=== PATIENT | male | born 1955 | race Caucasian/White ===

== ENCOUNTER 2020-12-17 10:55 | Outpatient (REF) | payer OTHER, SELFPAY ==
[2020-12-17 11:32] LABS: MANUAL DIFF FLAG NO
[2020-12-17 11:52] LABS: Basophils Absolute Auto 0.1 X10*3/uL (0.0-0.2); Eosinophils Absolute Auto 0.3 X10*3/uL (0.0-0.4); Hematocrit 40.2 % (42-52); Imm Gran Abs Auto 0.02 X10*3/uL (0.00-0.03); Imm Gran Pct Auto 0.4 % (0.0-0.4); Lymphocytes Absolute Auto 1.2 X10*3/uL (1.2-4.9); Lymphocytes Percent Auto 24.7 % (20-40); Mean Corpuscular HGB Conc 34.8 g/dl (31.0-36.0); Mean Corpuscular Hemoglobin 32.9 pg (27.0-33.0); Mean Corpuscular Volume 94.6 fL (80-98); Mean Platelet Volume 8.7 fL (9.4-12.4); Monocytes Absolute Auto 0.4 X10*3/uL (0.1-1.2); Monocytes Percent Auto 7.6 % (2-11); Neutrophils Absolute Auto 3.1 X10*3/uL (2.0-8.3); Neutrophils Percent Auto 61.3 % (45-73); Platelet Count 150 X10*3/uL (160-400); Red Blood Count 4.25 X10*6/uL (4.60-5.80); Red Cell Distribution Width 13.4 % (11.0-16.0)
[2020-12-17 12:18] LABS: Alanine Aminotransferase 32 U/L (0-40); Albumin Level 4.4 g/dL (3.5-5.0); Alkaline Phosphatase 46 U/L (39-117); Anion Gap 13 (12-20); Aspartate Amino Transferase 27 U/L (5-37); Bilirubin Total 1.2 mg/dL (0.0-1.0); Blood Urea Nitrogen 13 mg/dL (9-16); Calcium 9.1 mg/dL (8.4-10.2); Carbon Dioxide 27 mmol/L (22-29); Chloride 100 mmol/L (96-108); Cholesterol 147 mg/dL; Estimated Glomerular Filt Rate > 60; Glucose Fasting 102 mg/dL (60-99); HDL Cholesterol 47 mg/dL; LDL Cholesterol Calculated 74 mg/dl; Potassium 5.1 mmol/L (3.3-5.1); Sodium 135 mmol/L (135-145); Total Protein 6.9 g/dL (6.5-8.0); Triglycerides 133 mg/dL
[2020-12-17 12:25] LABS: Prostate Specific Antigen Scr 3.32 ng/mL (<0.05-4.0); T4 Thyroxine 7.8 ug/dL (4.5-12.0); Thyroid Stimulating Hormone 2.65 uIU/mL (0.32-4.0)
[2020-12-17 12:50] LABS: Folate > 20.0 ng/mL (> or = 4.0); Vitamin B12 773 pg/mL (200-900)
[2020-12-23 14:27] LABS: Testosterone, Free 127.6 pg/mL (35.0-155.0); Testosterone, Total 717 ng/dL (250-1100)
== END 2020-12-17 10:56 | disposition home or self-care (01) ==
LOC: HO.LAB 10:55
PROVIDERS: Absent Provider Urology; PCP Internal Medicine; Visit Provider Internal Medicine
DX: Z00.00 Encounter for general adult medical examination without abnormal findings (principal); Z12.5 Encounter for screening for malignant neoplasm of prostate; I10 Essential (primary) hypertension; E29.1 Testicular hypofunction; E66.01 Morbid (severe) obesity due to excess calories; H61.23 Impacted cerumen, bilateral
CPT/HCPCS: 36415; 80053; 80061; 82607; 82746; 84153; 84402; 84403; 84436; 84443; 85025

== ENCOUNTER → 2020-12-31 11:12 | Outpatient (BNVA) | payer OTHER, SELFPAY | PROVIDERS: PCP Internal Medicine; Visit Provider Urology | DX: Z13.89 Encounter for screening for other disorder (principal) | CPT/HCPCS: Q3014 ==

== ENCOUNTER 2021-06-22 10:26 | Outpatient (REF) | payer OTHER, SELFPAY ==
[2021-06-22 11:34] LABS: MANUAL DIFF FLAG SCAN; Mean Corpuscular Hemoglobin 32.5 pg (27.0-33.0); PLT CLUMP 1; SCAN SMEAR FLAG 1
[2021-06-22 11:36] LABS: Basophils Absolute Auto 0.1 X10*3/uL (0.0-0.2); Eosinophils Absolute Auto 0.3 X10*3/uL (0.0-0.4); Eosinophils Percent Auto 5.8 % (0-4); Hematocrit 36.9 % (42-52); Hemoglobin 12.8 g/dl (14.0-18.0); Imm Gran Abs Auto 0.02 X10*3/uL (0.00-0.03); Imm Gran Pct Auto 0.4 % (0.0-0.4); Immature Retic Fraction 17.1 % (2.3-13.4); Lymphocytes Percent Auto 20.3 % (20-40); Mean Corpuscular HGB Conc 34.7 g/dl (31.0-36.0); Mean Corpuscular Volume 93.7 fL (80-98); Monocytes Absolute Auto 0.4 X10*3/uL (0.1-1.2); Monocytes Percent Auto 7.2 % (2-11); Neutrophils Absolute Auto 3.3 X10*3/uL (2.0-8.3); Neutrophils Percent Auto 65.3 % (45-73); Platelet Count 146 X10*3/uL (160-400); Red Blood Count 3.94 X10*6/uL (4.60-5.80); Red Cell Distribution Width 13.3 % (11.0-16.0); Retic HGB Equivalent 35.2 pg (30.0-35.0); Reticulocyte Percent 4.6 % (0.5-1.8); Reticulocytes Absolute 0.181 X10*6/uL (0.026-0.095)
[2021-06-22 12:29] LABS: Prostate Specific Antigen 2.49 ng/mL (<0.05-4.0)
[2021-06-22 12:37] LABS: Alanine Aminotransferase 23 U/L (0-40); Albumin Level 4.2 g/dL (3.5-5.0); Alkaline Phosphatase 45 U/L (39-117); Anion Gap 17 (12-20); Aspartate Amino Transferase 26 U/L (5-37); Bilirubin Total 1.1 mg/dL (0.0-1.0); Blood Urea Nitrogen 12 mg/dL (9-16); Calcium 9.2 mg/dL (8.4-10.2); Carbon Dioxide 24 mmol/L (22-29); Chloride 97 mmol/L (96-108); Cholesterol 125 mg/dL; Estimated Glomerular Filt Rate > 60; Ferritin 152 ng/mL (20-250); Folate > 20.0 ng/mL (> or = 4.0); Free T4 (Free Thyroxine) 0.98 ng/dL (0.71-1.85); Glucose Random 96 mg/dL (60-115); HDL Cholesterol 43 mg/dL; Iron 90 mcg/dL (45-160); LDL Cholesterol Calculated 57 mg/dl; Percent Iron Saturation 32 % (15-50); Potassium 4.8 mmol/L (3.3-5.1); Prostate Specific Antigen Scr 2.58 ng/mL (<0.05-4.0); Sodium 133 mmol/L (135-145); Thyroid Stimulating Hormone 2.87 uIU/mL (0.32-4.0); Total Iron Binding Capacity 284 mcg/dL (228-428); Total Protein 6.6 g/dL (6.5-8.0); Triglycerides 126 mg/dL; Unsaturated Iron Binding 194 ug/dL; Vitamin B12 738 pg/mL (200-900)
== END 2021-06-22 10:27 | disposition home or self-care (01) ==
LOC: HO.LAB 10:26
PROVIDERS: Absent Provider Urology; PCP Internal Medicine; Visit Provider Internal Medicine
DX: Z12.5 Encounter for screening for malignant neoplasm of prostate (principal); E29.1 Testicular hypofunction; N13.8 Other obstructive and reflux uropathy; N40.1 Benign prostatic hyperplasia with lower urinary tract symptoms; D64.9 Anemia, unspecified
CPT/HCPCS: 36415; 80053; 80061; 82607; 82728; 82746; 83540; 84153; 84403; 84439; 84443; 85025; 85045

== ENCOUNTER → 2021-06-30 09:16 | Outpatient (BNVA) | payer OTHER, SELFPAY | PROVIDERS: PCP Internal Medicine; Visit Provider Urology | CPT/HCPCS: Q3014 ==

== ENCOUNTER 2022-01-05 11:02 | Outpatient (REF) | payer OTHER, SELFPAY ==
[2022-01-05 11:42] LABS: Immature Retic Fraction 18.5 % (2.3-13.4); Retic HGB Equivalent 34.3 pg (30.0-35.0); Reticulocyte Percent 3.8 % (0.5-1.8); Reticulocytes Absolute 0.173 X10*6/uL (0.026-0.095)
[2022-01-05 11:48] LABS: Hematocrit 40.7 % (42.0-52.0); Hemoglobin 14.2 g/dl (14.0-18.0); Mean Corpuscular HGB Conc 34.9 g/dl (31.0-36.0); Mean Corpuscular Hemoglobin 31.8 pg (27.0-33.0); Mean Corpuscular Volume 91.3 fL (80.0-98.0); Platelet Count 157 X10*3/uL (160-400); Red Blood Count 4.46 X10*6/uL (4.60-5.80); Red Cell Distribution Width 13.8 % (11.0-16.0); White Blood Count 5.9 X10*3/uL (4.8-10.8)
[2022-01-05 13:07] LABS: Alanine Aminotransferase 27 U/L (0-40); Albumin Level 4.2 g/dL (3.5-5.0); Alkaline Phosphatase 36 U/L (39-117); Anion Gap 13 (12-20); Aspartate Amino Transferase 31 U/L (5-37); Bilirubin Total 1.4 mg/dL (0.0-1.0); Blood Urea Nitrogen 14 mg/dL (9-16); Calcium 9.3 mg/dL (8.4-10.2); Carbon Dioxide 26 mmol/L (22-29); Chloride 100 mmol/L (96-108); Cholesterol 137 mg/dL; Estimated Glomerular Filt Rate > 60; Glucose Random 96 mg/dL (60-115); HDL Cholesterol 43 mg/dL; Iron 112 mcg/dL (45-160); LDL Cholesterol Calculated 72 mg/dl; Percent Iron Saturation 39 % (15-50); Potassium 4.8 mmol/L (3.3-5.1); Sodium 134 mmol/L (135-145); Total Iron Binding Capacity 287 mcg/dL (228-428); Total Protein 6.7 g/dL (6.5-8.0); Triglycerides 111 mg/dL; Unsaturated Iron Binding 175 ug/dL
[2022-01-05 13:10] LABS: Vitamin B12 714 pg/mL (200-900)
[2022-01-05 13:19] LABS: Ferritin 160 ng/mL (20-250); Free T4 (Free Thyroxine) 0.92 ng/dL (0.71-1.85)
[2022-01-05 13:20] LABS: Thyroid Stimulating Hormone 2.32 uIU/mL (0.32-4.0)
[2022-01-13 11:32] LABS: Testosterone, Free 78.6 pg/mL (35.0-155.0); Testosterone, Total 482 ng/dL (250-1100)
== END 2022-01-05 11:03 | disposition home or self-care (01) ==
LOC: HO.LAB 11:02
PROVIDERS: Absent Provider Urology; PCP Internal Medicine; Visit Provider Internal Medicine
DX: E29.1 Testicular hypofunction (principal); E78.00 Pure hypercholesterolemia, unspecified; N40.1 Benign prostatic hyperplasia with lower urinary tract symptoms; N13.8 Other obstructive and reflux uropathy; Z12.5 Encounter for screening for malignant neoplasm of prostate
CPT/HCPCS: 36415; 80053; 80061; 82607; 82728; 82746; 83540; 84153; 84402; 84403; 84439; 84443; 85027; 85045

== ENCOUNTER → 2022-01-31 08:35 | Outpatient (BNVA) | payer OTHER, SELFPAY | PROVIDERS: PCP Internal Medicine; Visit Provider Urology | DX: E29.1 Testicular hypofunction (principal) | CPT/HCPCS: Q3014 ==

== ENCOUNTER 2022-06-22 10:09 | Outpatient (REF) | payer OTHER, SELFPAY ==
[2022-06-22 11:11] LABS: Mean Platelet Volume 9.5 fL (9.4-12.4); PLT CLUMP 1; Red Cell Distribution Width 13.8 % (11.0-16.0); SCAN SMEAR FLAG 1
[2022-06-22 11:13] LABS: Basophils Absolute Auto 0.1 X10*3/uL (0.0-0.2); Basophils Percent Auto 1.2 % (0-2); Eosinophils Absolute Auto 0.2 X10*3/uL (0.0-0.4); Hematocrit 40.9 % (42.0-52.0); Hemoglobin 14.1 g/dl (14.0-18.0); Imm Gran Abs Auto 0.07 X10*3/uL (0.00-0.03); Imm Gran Pct Auto 1.2 % (0.0-0.4); Lymphocytes Absolute Auto 1.3 X10*3/uL (1.2-4.9); Lymphocytes Percent Auto 20.8 % (20-40); Mean Corpuscular HGB Conc 34.5 g/dl (31.0-36.0); Mean Corpuscular Hemoglobin 31.3 pg (27.0-33.0); Mean Corpuscular Volume 90.7 fL (80.0-98.0); Monocytes Absolute Auto 0.6 X10*3/uL (0.1-1.2); Monocytes Percent Auto 9.1 % (2-11); Neutrophils Absolute Auto 3.8 x10*3/uL (2.0-8.3); Neutrophils Percent Auto 63.7 % (45-73); Red Blood Count 4.51 X10*6/uL (4.60-5.80)
[2022-06-22 11:25] LABS: MANUAL DIFF FLAG NO; Platelet Count 151 X10*3/uL (160-400)
[2022-06-22 12:15] LABS: Prostate Specific Antigen 2.17 ng/mL (<0.05-4.0)
[2022-06-29 04:45] LABS: Testosterone, Total 853 ng/dL (250-1100)
== END 2022-06-22 10:10 | disposition home or self-care (01) ==
LOC: HO.LAB 10:09
PROVIDERS: Absent Provider Urology; PCP Internal Medicine; Visit Provider Internal Medicine
DX: E29.1 Testicular hypofunction (principal); E78.00 Pure hypercholesterolemia, unspecified; Z12.5 Encounter for screening for malignant neoplasm of prostate
CPT/HCPCS: 36415; 84153; 84403; 85025

== ENCOUNTER → 2022-08-02 10:51 | Outpatient (REF) | payer OTHER, SELFPAY | LOC: HO.SL 10:51 | PROVIDERS: Visit Provider Internal Medicine | DX: G47.33 Obstructive sleep apnea (adult) (pediatric) (principal) | CPT/HCPCS: 95806 ==

== ENCOUNTER → 2022-08-04 08:29 | Outpatient (BNVA) | payer OTHER, SELFPAY | PROVIDERS: PCP Internal Medicine; Visit Provider Urology | DX: E29.1 Testicular hypofunction (principal) | CPT/HCPCS: Q3014 ==

== ENCOUNTER → 2022-11-22 10:18 | Outpatient (REF) | payer OTHER, SELFPAY ==
--- NOTE | 2022-11-22 10:25 | ECG_ITS ---
Test Reason : preop Blood Pressure : / mmHG Vent. Rate : 067 BPM Atrial Rate : 067 BPM P-R Int : 192 ms QRS Dur : 170 ms QT Int : 426 ms P-R-T Axes : 101 -59 019 degrees QTc Int : 450 ms Normal sinus rhythm Right bundle branch block Left anterior fascicular block Bifascicular block Abnormal ECG When compared with ECG of 31-DEC-2017 13:54, (RBBB and left anterior fascicular block) is now Present Referred By: Venice Membreno Electronically Signed By:FERNANDA CÁRDENAS MD
[2022-11-22 10:31] LABS: MANUAL DIFF FLAG NO
[2022-11-22 12:13] LABS: Basophils Percent Auto 0.6 % (0-2); Eosinophils Absolute Auto 0.3 X10*3/uL (0.0-0.4); Eosinophils Percent Auto 5.2 % (0-4); Hematocrit 41.8 % (42.0-52.0); Hemoglobin 14.5 g/dl (14.0-18.0); Imm Gran Abs Auto 0.06 X10*3/uL (0.00-0.03); Imm Gran Pct Auto 1.2 % (0.0-0.4); Lymphocytes Absolute Auto 1.4 X10*3/uL (1.2-4.9); Lymphocytes Percent Auto 27.9 % (20-40); Mean Corpuscular HGB Conc 34.7 g/dl (31.0-36.0); Mean Corpuscular Hemoglobin 32.4 pg (27.0-33.0); Mean Corpuscular Volume 93.5 fL (80.0-98.0); Mean Platelet Volume 9.6 fL (9.4-12.4); Monocytes Absolute Auto 0.6 X10*3/uL (0.1-1.2); Neutrophils Absolute Auto 2.7 x10*3/uL (2.0-8.3); Neutrophils Percent Auto 54.1 % (45-73); Platelet Count 161 X10*3/uL (160-400); Red Blood Count 4.47 X10*6/uL (4.60-5.80); Red Cell Distribution Width 13.6 % (11.0-16.0)
[2022-11-22 12:30] LABS: Prothrombin Time 11.7 SEC (10.0-13.1)
[2022-11-22 12:56] LABS: Anion Gap 14 (12-20); Blood Urea Nitrogen 11 mg/dL (9-16); Calcium 9.2 mg/dL (8.4-10.2); Carbon Dioxide 26 mmol/L (22-29); Chloride 99 mmol/L (96-108); Estimated Glomerular Filt Rate > 60; Glucose Random 82 mg/dL (60-115); Sodium 134 mmol/L (135-145)
== END ==
LOC: HO.CARD 10:18
PROVIDERS: PCP Internal Medicine; Visit Provider Nurse Practitioner Family
DX: Z01.818 Encounter for other preprocedural examination (principal)
CPT/HCPCS: 36415; 80048; 85025; 85610; 93005

== ENCOUNTER 2023-01-18 10:34 | Outpatient (REF) | payer OTHER, SELFPAY ==
[2023-01-18 10:53] LABS: MANUAL DIFF FLAG NO
[2023-01-18 11:11] LABS: Basophils Absolute Auto 0.1 X10*3/uL (0.0-0.2); Basophils Percent Auto 1.1 % (0-2); Eosinophils Absolute Auto 0.2 X10*3/uL (0.0-0.4); Eosinophils Percent Auto 3.6 % (0-4); Hematocrit 42.2 % (42.0-52.0); Imm Gran Abs Auto 0.02 X10*3/uL (0.00-0.03); Imm Gran Pct Auto 0.4 % (0.0-0.4); Lymphocytes Absolute Auto 1.1 X10*3/uL (1.2-4.9); Lymphocytes Percent Auto 20.9 % (20-40); Mean Corpuscular HGB Conc 35.5 g/dl (31.0-36.0); Mean Corpuscular Hemoglobin 32.7 pg (27.0-33.0); Mean Corpuscular Volume 91.9 fL (80.0-98.0); Mean Platelet Volume 8.9 fL (9.4-12.4); Monocytes Absolute Auto 0.4 X10*3/uL (0.1-1.2); Monocytes Percent Auto 7.5 % (2-11); Neutrophils Absolute Auto 3.5 x10*3/uL (2.0-8.3); Neutrophils Percent Auto 66.5 % (45-73); Platelet Count 153 X10*3/uL (160-400); Red Blood Count 4.59 X10*6/uL (4.60-5.80); White Blood Count 5.3 X10*3/uL (4.8-10.8)
[2023-01-18 12:13] LABS: Alanine Aminotransferase 37 U/L (0-40); Albumin Level 4.2 g/dL (3.5-5.0); Alkaline Phosphatase 46 U/L (39-117); Anion Gap 15 (12-20); Aspartate Amino Transferase 34 U/L (5-37); Bilirubin Total 1.6 mg/dL (0.0-1.0); Blood Urea Nitrogen 12 mg/dL (9-16); Calcium 9.2 mg/dL (8.4-10.2); Carbon Dioxide 25 mmol/L (22-29); Chloride 102 mmol/L (96-108); Cholesterol 139 mg/dL; Estimated Glomerular Filt Rate > 60; Glucose Random 105 mg/dL (60-115); HDL Cholesterol 44 mg/dL; LDL Cholesterol Calculated 73 mg/dl; Potassium 4.8 mmol/L (3.3-5.1); Sodium 137 mmol/L (135-145); Total Protein 6.6 g/dL (6.5-8.0); Triglycerides 111 mg/dL
[2023-01-18 13:02] LABS: Folate 15.2 ng/mL (> or = 4.0); Free T4 (Free Thyroxine) 0.91 ng/dL (0.71-1.85); Prostate Specific Antigen Scr 2.88 ng/mL (<0.05-4.0); Vitamin B12 670 pg/mL (200-900)
[2023-01-24 15:08] LABS: Testosterone, Total 449 ng/dL (250-1100)
== END 2023-01-18 10:35 | disposition home or self-care (01) ==
LOC: HO.LAB 10:34
PROVIDERS: Absent Provider Urology; PCP Internal Medicine; Visit Provider Internal Medicine
DX: Z12.5 Encounter for screening for malignant neoplasm of prostate (principal); E78.00 Pure hypercholesterolemia, unspecified
CPT/HCPCS: 36415; 80053; 80061; 82607; 82746; 84153; 84403; 84439; 84443; 85025

== ENCOUNTER → 2023-04-04 10:47 | Outpatient (BNVA) | payer OTHER, SELFPAY | PROVIDERS: PCP Internal Medicine; Visit Provider Urology | DX: E29.1 Testicular hypofunction (principal) | CPT/HCPCS: Q3014 ==

== ENCOUNTER 2023-09-10 10:16 | Outpatient (REF) | payer OTHER, SELFPAY ==
[2023-09-10 10:49] LABS: MANUAL DIFF FLAG NO
[2023-09-10 10:59] LABS: Basophils Absolute Auto 0.1 X10*3/uL (0.0-0.2); Basophils Percent Auto 1.2 % (0-2); Eosinophils Absolute Auto 0.2 X10*3/uL (0.0-0.4); Eosinophils Percent Auto 3.7 % (0-4); Hematocrit 42.2 % (42.0-52.0); Hemoglobin 14.9 g/dl (14.0-18.0); Imm Gran Abs Auto 0.04 X10*3/uL (0.00-0.03); Imm Gran Pct Auto 0.8 % (0.0-0.4); Lymphocytes Absolute Auto 1.2 X10*3/uL (1.2-4.9); Lymphocytes Percent Auto 24.1 % (20-40); Mean Corpuscular HGB Conc 35.3 g/dl (31.0-36.0); Mean Corpuscular Hemoglobin 32.5 pg (27.0-33.0); Mean Corpuscular Volume 91.9 fL (80.0-98.0); Monocytes Absolute Auto 0.3 X10*3/uL (0.1-1.2); Neutrophils Absolute Auto 3.1 x10*3/uL (2.0-8.3); Neutrophils Percent Auto 64.2 % (45-73); Platelet Count 153 X10*3/uL (160-400); Red Blood Count 4.59 X10*6/uL (4.60-5.80); Red Cell Distribution Width 13.5 % (11.0-16.0); White Blood Count 4.9 X10*3/uL (4.8-10.8)
[2023-09-10 11:03] LABS: Estimated Average Glucose 71 mg/dL; Hemoglobin A1c % 4.1 % (<6.0)
[2023-09-10 11:24] LABS: Alanine Aminotransferase 37 U/L (0-40); Albumin Level 4.2 g/dL (3.5-5.0); Alkaline Phosphatase 47 U/L (39-117); Anion Gap 14 (12-20); Aspartate Amino Transferase 37 U/L (5-37); Bilirubin Total 1.1 mg/dL (0.0-1.0); Blood Urea Nitrogen 10 mg/dL (9-16); Carbon Dioxide 21 mmol/L (22-29); Chloride 104 mmol/L (96-108); Estimated Glomerular Filt Rate > 60; Glucose Random 105 mg/dL (60-115); Potassium 4.3 mmol/L (3.3-5.1); Sodium 135 mmol/L (135-145); Total Protein 6.9 g/dL (6.5-8.0)
[2023-09-14 15:14] LABS: Testosterone, Total 595 ng/dL (250-1100)
== END 2023-09-10 10:17 | disposition home or self-care (01) ==
LOC: HO.LAB 10:16
PROVIDERS: Absent Provider Internal Medicine; PCP Internal Medicine; Visit Provider Urology
DX: Z12.5 Encounter for screening for malignant neoplasm of prostate (principal); R73.01 Impaired fasting glucose; E29.1 Testicular hypofunction
CPT/HCPCS: 36415; 80053; 83036; 84153; 84403; 85025

== ENCOUNTER 2023-09-25 11:30 | Outpatient (AMB) | payer OTHER, SELFPAY ==
[2023-09-25 11:31] VITALS: BP 180/110; PULSE 67; O2SAT 99; BMI 36.6
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
== END 2023-09-25 12:04 | disposition home or self-care (01) ==
PROVIDERS: PCP Internal Medicine; Visit Provider Internal Medicine
DX: Z00.00 Encounter for general adult medical examination without abnormal findings (principal); E66.01 Morbid (severe) obesity due to excess calories; Z68.43 Body mass index [BMI] 50.0-59.9, adult; I73.9 Peripheral vascular disease, unspecified; R73.01 Impaired fasting glucose; G47.33 Obstructive sleep apnea (adult) (pediatric); E29.1 Testicular hypofunction; E78.00 Pure hypercholesterolemia, unspecified; I10 Essential (primary) hypertension; M21.371 Foot drop, right foot
CPT/HCPCS: 99397

== ENCOUNTER 2023-10-05 10:10 | Outpatient (AMB) | payer OTHER, SELFPAY ==
--- NOTE | 2023-10-05 10:11 | MHC.OFFVIS ---
Intake Intake Visit Reasons: 6m/labs(set) Intake Note: Patient is Present for Telephone Follow Up For Urology Med: Testosterone Antibiotic Allergy: Penicillin, Blood Thinner: Aspirin Allergies Penicillins Allergy (Mild, Verified 10/05/23 10:12) UNKNOWN bupropion [From WELLBUTRIN] Allergy (Unknown, Verified 10/05/23 10:12) UNKNOWN lisinopril [LISINOPRIL] Allergy (Unknown, Verified 10/05/23 10:12) FAINTING HPI HPI Comments History of Present Illness Details Carroll is a very pleasant male. He is a patient of Dr. Rowe. He is seen for the following urologic conditions - hypogonadism Telemedicine evaluation 15 minute consultation Video attampted Hypogonadism follow-up Lab work stable Refill provided Great response to sleep apnea machine with significant improvement in energy Sleep quality significantly increased 6 month follow-up Hypogonadism: He presents today for further evaluation and followup of his hypogonadism - stable numbers - use 2 pumps every day Initial symptoms include erectile dysfunction Yes decreased libido Yes change in mood/depression Yes in muscle size/strength Yes increased fatigue/malaise Yes The onset of symptoms has been gradual Associate conditions include chronic pain with opioid use Yes obstructive sleep apnea No CAD No obesity No stress - financial, family, employment No heavy alcohol or illicit drug use No Laboratory results 12/23 , baseline, testosterone 250, low LH amd FSH 04/22 , testosterone 757, 05/23 T 405, PSA 2.5, 12/25 T 894 PSA 2.5, 12/26 T 717, PSA 2.32, 06/25 T pend, PSA 2.5, Hct 36.9, 01/24 T 482 P 2.7 H 41, 07/27 853 2.2 40, 01/25 T 450 2.8 42, 09/27 595 3.2 42 Current therapy includes gel/cream exogenous testosterone PFSH Medical History Right foot drop Left shoulder pain Right leg DVT Obesity Hypercholesterolemia Allergic rhinitis Knee osteoarthritis Hypogonadism BPH (benign prostatic hyperplasia) Obstructive sleep apnea Anemia Peripheral vascular disease Hypertension Surgical History Hx of tonsillectomy History of cataract surgery History of total left hip arthroplasty Family History Father Acute CVA (cerebrovascular accident) Diabetes Hypertension Stroke Mother Colon cancer Diabetes Hypertension Heart attack Brother No problems noted. Sister Depression Other Cancer Social History Housing: Apartment Alcohol intake: current Alcohol intake frequency: a few times a week Alcohol type: beer Comment: QD 3 drinks Patient Tobacco Use Status: Former Tobacco user Tobacco use type: Cigarette Years Smoked: stopped 2018 e-Cigarette/Vaping Use: Never Used Second Hand Smoke Exposure: No service: No Current occupational status: disabled Cognitive needs: Yes (walker ) Hearing needs: No Vision needs: Yes (glasses) Review of Systems Const All systems reviewed & are unremarkable except as noted in HPI and below Reports no additional complaints Resp Reports no additional complaints GI Reports no additional complaints Reports as per HPI Musc Reports no additional complaints Physical Exam Telemedicine evaluation Appropriate responses Regular breathing rate and rhythm HEENT Head: Yes normal to inspection Ears: hearing grossly normal bilaterally Eyes General: appearance normal, both eyes and all related structures Neck Neck: Yes normal visual inspection Chest Chest palpation & inspection: normal inspection of the chest Resp Effort & Inspection: normal respiratory effort and able to speak in complete sentences Assessment & Plan Assessment & Plan (1) Hypogonadism in male: Code(s): E29.1 - Testicular hypofunction Plan Continue therapy Six month follow-up Orders: Orders Testosterone, Total 6 Months E29.1 - Testicular hypofunction Complete Blood Count no Diff 6 Months E29.1 - Testicular hypofunction Prostate Specific Antigen 6 Months E29.1 - Testicular hypofunction Medications: Refilled testosterone apply 2 pumps total daily over max area of upper arm and shoulder Alternate arms 2 pumps topical DAILY 75 grams 5RF 28 days E29.1 - Testicular hypofunction Patient Instructions: Imaging studies, laboratory and physical exam results were discussed and reviewed in detail. No major barriers to patient understanding were identified. An opportunity to ask questions regarding the treatment plan was provided. All questions were answered. The patient expressed understanding and agreement with the above treatment plan. The patient is aware they should contact our office by phone for worsening of their current condition or the appearance of new urologic symptoms. Compliance is encouraged with any medications and followup testing that is ordered. It is a privilege to participate in the urologic care of your patient. If you have any questions or concerns regarding treatment for the above conditions, or other urologic issues, please do not hesitate to contact me. The office telephone contact is [phone]. This note is constructed using voice recognition software. While every effort has been made to ensure accuracy solvent station attendant errors may have been included. Yours sincerely, Dr Rikki Gunn MD, [facility] - Urology Providers of Expert, Compassionate Care for the Genitourinary System Telehealth Telehealth Location of provider rendering services: practice address Location of patient: address on file Patient Identification confirmed using: Name, : Yes Telehealth method: video Patient verbally consented to treatment: Yes Patient verbally consented to billing insurance company: Yes Patient informed of any privacy concerns related to visit: Yes Coding Level of Care Code Tele Est Pt Level 3 (97395) Diagnoses Hypogonadism in male E29.1
== END 2023-10-05 11:28 | disposition home or self-care (01) ==
LOC: HO.HUSH 10:10
PROVIDERS: PCP Internal Medicine; Visit Provider Urology
DX: E29.1 Testicular hypofunction (principal)
CPT/HCPCS: 99213

== ENCOUNTER → 2023-10-05 10:10 | Outpatient (BNVA) | payer OTHER, SELFPAY | PROVIDERS: PCP Internal Medicine; Visit Provider Urology ==

== ENCOUNTER 2023-11-22 11:00 | Outpatient (RCR) | payer OTHER, SELFPAY ==
[2023-10-25 09:50] VITALS: BP 165/77; PULSE 66
--- NOTE | 2023-10-25 10:41 | MHC.PT.EP ---
[facility] [place] Office [place] Office [place] Office [address] Elizabeth Donaldson [address] [phone] F: [phone] F: [phone] F: [phone] F: [phone] Physical Therapy Plan of Care Date of Evaluation: 10/25/23 Date of Surgery: N/A Diagnosis: right foot drop (RL) Assessment: pt is a 68 y/o male presenting to physical therapy w/ referring diagnosis of right foot drop. Impairments include pain, decreased range of motion, decreased strength, impaired functional mobility, impaired postural awareness, and altered ambulation mechanics. pt is a fair candidate for skilled PT due to age, potential remediation of impairments, typical disease/condition progression and prognosis, comorbidities, and motivation. pt would benefit from skilled PT intervention to provide a tailored strengthening and stretching exercise program, functional training, gait training, postural re-training, neuromuscular re-education, modalities as needed for pain, equipment safety demonstration. Frequency and Duration: The patient will be seen 2x/wk for 4 wks Short Term Goals: pt will be I w/ HEP to promote self-management of condition. pt will improve R hip flexor strength by 1 MMT grade to promote improvement in stair navigation. Accountant Auditor Goals: pt will report a statistically significant improvement in self-reported outcome measure, LEFI, to promote return to PLOF. pt will improve standing tolerance to >15 min to promote ease in standing self-care activities. Treatment Plan: Modalities to reduce pain, spasms and effusion. Manual therapy to restore motion and function. Therapeutic exercise to improve strength and flexibility. Neuromuscular re-education for posture and balance. Therapeutic activities to return to functional activities of daily living. Electronically signed by: Mary Ledesma PT, DPT Please sign and return to therapist. Thank you for your referral.
--- NOTE | 2023-11-26 10:43 | MHC.PT.DC ---
[facility] [place] Office [place] Office [place] Office [address] Elizabeth Donaldson 140 [facility] [phone] F: [phone] F: [phone] F: [phone] F: [phone] Physical Therapy Discharge Report Diagnosis: right foot drop (RL) Date of Surgery: N/A Date of Evaluation: 10/25/23 Date of Discharge: 11/26/23 Treatments to Date: 7 Cancellations to Date: 1 No Shows to Date: 0 Discharge Status: Improved Function Independent with HEP Discharge Summary: The patient overall has been more active and shows improved strength and stamina. He is planning on getting a gym membership to continue his strengthening. He is discharged to his home program at this time. Electronically signed by: Mary Ledesma PT, DPT Please sign and return to therapist. Thank you for your referral.
== END 2023-11-26 10:43 | disposition home or self-care (01) ==
LOC: HO.PT 11:00
PROVIDERS: PCP Internal Medicine; Visit Provider Internal Medicine
DX: M21.371 Foot drop, right foot (principal)
CPT/HCPCS: 97110; 97162; 97530

== ENCOUNTER 2024-03-05 11:11 | Outpatient (REF) | payer OTHER, SELFPAY ==
[2024-03-05 13:02] LABS: Prostate Specific Antigen 3.17 ng/mL (<0.05-4.0)
[2024-03-08 15:39] LABS: Testosterone, Total 442 ng/dL (250-1100)
== END 2024-03-05 11:12 | disposition home or self-care (01) ==
LOC: HO.LAB 11:11
PROVIDERS: Absent Provider Urology; PCP Internal Medicine; Visit Provider Internal Medicine
DX: Z12.5 Encounter for screening for malignant neoplasm of prostate (principal); E29.1 Testicular hypofunction
CPT/HCPCS: 36415; 84153; 84403; 85027

== ENCOUNTER 2024-03-25 11:27 | Outpatient (AMB) | payer OTHER, SELFPAY ==
[2024-03-25 11:30] VITALS: BP 136/78; PULSE 84; O2SAT 97; BMI 51.2
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
== END 2024-03-25 12:00 | disposition home or self-care (01) ==
PROVIDERS: PCP Internal Medicine; Visit Provider Internal Medicine
DX: I10 Essential (primary) hypertension (principal); E66.01 Morbid (severe) obesity due to excess calories; Z68.43 Body mass index [BMI] 50.0-59.9, adult; H61.23 Impacted cerumen, bilateral; E29.1 Testicular hypofunction; E78.00 Pure hypercholesterolemia, unspecified; G47.33 Obstructive sleep apnea (adult) (pediatric); R73.01 Impaired fasting glucose; M21.371 Foot drop, right foot; R42 Dizziness and giddiness; M17.10 Unilateral primary osteoarthritis, unspecified knee
CPT/HCPCS: 69210; 99214

== ENCOUNTER 2024-04-09 11:00 | Outpatient (AMB) | payer OTHER, SELFPAY ==
--- NOTE | 2024-04-09 11:00 | A.OFFVIS_ITS ---
Intake Visit Reasons: 6M PSA(set) Intake Note: Patient is Presents today for a follow-up, PSA Results: Urology Med: Testosterone Antibiotic Allergy: Penicillin, Blood Thinner: Aspirin Oil Mixer Required: No Accompanied by: Self / Same As Patient Allergies Penicillins Allergy (Mild, Verified 04/09/24 11:00) UNKNOWN bupropion [From WELLBUTRIN] Allergy (Unknown, Verified 04/09/24 11:00) UNKNOWN lisinopril [LISINOPRIL] Allergy (Unknown, Verified 04/09/24 11:00) FAINTING HPI Comments Details: Carroll is a very pleasant male. He is a patient of Dr. Rowe. He is seen for the following urologic conditions - hypogonadism Telemedicine Evaluation 15 min Consultation [facility] Video Hypogonadism follow-up Lab work stable Refill provided Great response to sleep apnea machine with significant improvement in energy Sleep quality significantly increased 6 month follow-up Hypogonadism: He presents today for further evaluation and followup of his hypogonadism - stable numbers - use 2 pumps every day Initial symptoms include erectile dysfunction Yes decreased libido Yes change in mood/depression Yes in muscle size/strength Yes increased fatigue/malaise Yes The onset of symptoms has been gradual Associate conditions include chronic pain with opioid use Yes obstructive sleep apnea No CAD No obesity No stress - financial, family, employment No heavy alcohol or illicit drug use No Laboratory results 12/23 , baseline, testosterone 250, low LH amd FSH 04/22 , testosterone 757, 05/23 T 405, PSA 2.5, 12/25 T 894 PSA 2.5, 12/26 T 717, PSA 2.32, 06/25 T pend, PSA 2.5, Hct 36.9, 01/24 T 482 P 2.7 H 41, 07/27 853 2.2 40, 01/25 T 450 2.8 42, 09/27 595 3.2 42, 03/28 T 442 3.2 41 Current therapy includes gel/cream exogenous testosterone [facility] Medical History Right foot drop Left shoulder pain Right leg DVT Obesity Hypercholesterolemia Allergic rhinitis Knee osteoarthritis Hypogonadism BPH (benign prostatic hyperplasia) Obstructive sleep apnea Anemia Peripheral vascular disease Hypertension Surgical History Hx of tonsillectomy History of cataract surgery History of total left hip arthroplasty Family History Father Acute CVA (cerebrovascular accident) Diabetes Hypertension Stroke Mother Colon cancer Diabetes Hypertension Heart attack Brother No problems noted. Sister Depression Other Cancer Social History Housing: Apartment Alcohol intake: current Alcohol intake frequency: a few times a week Alcohol type: beer Comment: QD 3 drinks Patient Tobacco Use Status: Former Tobacco user Tobacco use type: Cigarette Years Smoked: stopped 2018 e-Cigarette/Vaping Use: Never Used Second Hand Smoke Exposure: No service: No Current occupational status: disabled Cognitive needs: Yes (walker ) Hearing needs: No Vision needs: Yes (glasses) Review of Systems Const All systems reviewed & are unremarkable except as noted in HPI and below Reports no additional complaints Resp Reports no additional complaints GI Reports no additional complaints Reports as per HPI Musc Reports no additional complaints Physical Exam Telemedicine evaluation Appropriate responses Regular breathing rate and rhythm HEENT Head: Yes normal to inspection Ears: hearing grossly normal bilaterally Eyes General: appearance normal, both eyes and all related structures Neck Neck: Yes normal visual inspection Chest Chest palpation & inspection: normal inspection of the chest Resp Effort & Inspection: normal respiratory effort and able to speak in complete sentences Telehealth Telehealth Telehealth Platform: [facility] Location of provider rendering services: practice address Location of patient: address on file Patient Identification confirmed using: Name, : Yes Telehealth method: video Patient verbally consented to treatment: Yes Patient verbally consented to billing insurance company: Yes Patient informed of any privacy concerns related to visit: Yes Minutes spent on Phone/Video with Pt.: 15 Assessment & Plan Assessment & Plan (1) Hypogonadism in male: Code(s): E29.1 - Testicular hypofunction Category: Medical Plan Six-month follow-up labs office Orders: Orders Prostate Specific Antigen 6 Months E29.1 - Testicular hypofunction Testosterone, Total 6 Months E29.1 - Testicular hypofunction Complete Blood Count no Diff 6 Months E29.1 - Testicular hypofunction Medications: Refilled testosterone apply 2 pumps total daily over max area of upper arm and shoulder Alternate arms 2 pumps topical DAILY 28 days 75 grams 5RF E29.1 - Testicular hypofunction Patient Instructions: Imaging studies, laboratory and physical exam results were discussed and reviewed in detail. No major barriers to patient understanding were identified. An opportunity to ask questions regarding the treatment plan was provided. All questions were answered. The patient expressed understanding and agreement with the above treatment plan. The patient is aware they should contact our office by phone for worsening of their current condition or the appearance of new urologic symptoms. Compliance is encouraged with any medications and followup testing that is ordered. It is a privilege to participate in the urologic care of your patient. If you have any questions or concerns regarding treatment for the above conditions, or other urologic issues, please do not hesitate to contact me. The office telephone contact is [phone]. This note is constructed using voice recognition software. While every effort has been made to ensure accuracy cooler conveyor loader errors may have been included. Yours sincerely, Dr Rikki Gunn MD, [facility] - Urology Providers of Expert, Compassionate Care for the Genitourinary System Coding Level of Care Code Tele Est Pt Level 3 (48230) Diagnoses Hypogonadism in male E29.1
== END 2024-04-09 11:23 | disposition home or self-care (01) ==
LOC: HO.HUSH 11:00
PROVIDERS: PCP Internal Medicine; Visit Provider Urology
DX: E29.1 Testicular hypofunction (principal)
CPT/HCPCS: 99213

== ENCOUNTER → 2024-04-09 11:00 | Outpatient (BNVA) | payer OTHER, SELFPAY | PROVIDERS: PCP Internal Medicine; Visit Provider Urology ==

== ENCOUNTER 2024-05-21 11:00 | Outpatient (RCR) | payer OTHER, SELFPAY ==
[2024-04-30 10:05] VITALS: BP 135/67; PULSE 62
--- NOTE | 2024-04-30 11:16 | MHC.PT.EP ---
[facility] [place] Office [place] Office [place] Office [address] Elizabeth Donaldson [address] [phone] F: [phone] F: [phone] F: [phone] F: [phone] Physical Therapy Plan of Care Date of Evaluation: 04/30/24 Date of Surgery: Diagnosis: Dizziness and giddiness Vertigo Assessment: Pt is a pleasant 68yo M who presents to PT with dizziness with nystagmus noted throughout previous PT sessions. Pt reports dizziness when laying on his left side. Upon assessment, pt had (+) left [place]ina Hallpike. Pt was taken through L Mike maneuver x 1 rep. Pt had (-) L [place] Hallpike upon reassesment after Mike Maneuver. He also had (-) roll test bilaterally after treatment. Pt is recommended to be seen for PT to reassess symptoms and treat BPPV as appropriate Frequency and Duration: The patient will be seen 6 visits Short Term Goals: Pt will be I with HEP to promote self management of symptoms Pt will test negative for BPPV Correction Goals: Pt will perform rolling toward left side without dizziness or instability Pt will perform supine<>sit transfers without dizziness or instability Treatment Plan: Modalities to reduce pain, spasms and effusion. Manual therapy to restore motion and function. Therapeutic exercise to improve strength and flexibility. Neuromuscular re-education for posture and balance. Therapeutic activities to return to functional activities of daily living. Electronically signed by: Ailyn Avila, PT, DPT Please sign and return to therapist. Thank you for your referral.
--- NOTE | 2024-08-11 12:29 | MHC.PT.DC ---
[facility] [place] Office [place] Office [place] Office [address]on [address] [phone] F: [phone] F: [phone] F: [phone] F: [phone] Physical Therapy Discharge Report Diagnosis: Dizziness and giddiness Vertigo Date of Surgery: Date of Evaluation: 04/30/24 Date of Discharge: 08/11/24 Treatments to Date: 1 Cancellations to Date: No Shows to Date: Discharge Status: Discharge Summary: Pt is being D/C from skilled PT as he has not attended or called to schedule in > 30 days. Pt current level of function unknown at this time Electronically signed by: Ailyn Avila, PT, DPT Please sign and return to therapist. Thank you for your referral.
== END 2024-08-11 12:29 | disposition home or self-care (01) ==
LOC: HO.PT 11:00
PROVIDERS: PCP Internal Medicine; Visit Provider Internal Medicine
DX: R42 Dizziness and giddiness (principal)
CPT/HCPCS: 95992; 97161

== ENCOUNTER 2024-07-31 10:54 | Outpatient (REF) | payer OTHER, SELFPAY ==
[2024-07-31 11:35] LABS: MANUAL DIFF FLAG NO
[2024-07-31 12:24] LABS: Basophils Absolute Auto 0.1 X10*3/uL (0.0-0.2); Eosinophils Absolute Auto 0.3 X10*3/uL (0.0-0.4); Eosinophils Percent Auto 4.3 % (0-4); Hematocrit 40.9 % (42.0-52.0); Hemoglobin 14.6 g/dl (14.0-18.0); Imm Gran Abs Auto 0.06 X10*3/uL (0.00-0.03); Lymphocytes Absolute Auto 1.6 X10*3/uL (1.2-4.9); Lymphocytes Percent Auto 26.1 % (20-40); Mean Corpuscular HGB Conc 35.7 g/dl (31.0-36.0); Mean Corpuscular Volume 92.3 fL (80.0-98.0); Mean Platelet Volume 9.2 fL (9.4-12.4); Monocytes Absolute Auto 0.4 X10*3/uL (0.1-1.2); Monocytes Percent Auto 6.9 % (2-11); Neutrophils Absolute Auto 3.7 x10*3/uL (2.0-8.3); Neutrophils Percent Auto 60.7 % (45-73); Platelet Count 141 X10*3/uL (160-400); Red Blood Count 4.43 X10*6/uL (4.60-5.80); Red Cell Distribution Width 13.4 % (11.0-16.0); White Blood Count 6.1 X10*3/uL (4.8-10.8)
[2024-07-31 12:33] LABS: Hemoglobin A1c % 4.4 % (<6.0)
[2024-07-31 12:34] LABS: Estimated Average Glucose 80 mg/dL
[2024-07-31 12:58] LABS: Alanine Aminotransferase 64 U/L (0-40); Albumin Level 4.2 g/dL (3.5-5.0); Alkaline Phosphatase 42 U/L (39-117); Anion Gap 13 (12-20); Aspartate Amino Transferase 54 U/L (5-37); Bilirubin Total 1.2 mg/dL (0.0-1.0); Blood Urea Nitrogen 13 mg/dL (9-16); Calcium 9.6 mg/dL (8.4-10.2); Carbon Dioxide 26 mmol/L (22-29); Chloride 103 mmol/L (96-108); Cholesterol 133 mg/dL (<200); Estimated Glomerular Filt Rate > 60; Glucose Random 103 mg/dL (60-115); HDL Cholesterol 44 mg/dL (>40); LDL Cholesterol Calculated 60 mg/dL (<100); Potassium 4.9 mmol/L (3.3-5.1); Sodium 137 mmol/L (135-145); Total Protein 6.9 g/dL (6.5-8.0); Triglycerides 146 mg/dL (<150)
[2024-07-31 13:17] LABS: Free T4 (Free Thyroxine) 0.96 ng/dL (0.71-1.85); Thyroid Stimulating Hormone 2.33 uIU/mL (0.32-4.0)
[2024-07-31 13:23] LABS: Folate 15.9 ng/mL (> or = 4.0); Prostate Specific Antigen Scr 4.66 ng/mL (<0.05-4.0); Vitamin B12 1168 pg/mL (200-900)
== END 2024-07-31 10:55 | disposition home or self-care (01) ==
LOC: HO.LAB 10:54
PROVIDERS: Absent Provider Internal Medicine; PCP Internal Medicine; Visit Provider Urology
DX: E78.00 Pure hypercholesterolemia, unspecified (principal); Z12.5 Encounter for screening for malignant neoplasm of prostate; Z13.1 Encounter for screening for diabetes mellitus
CPT/HCPCS: 36415; 80053; 80061; 82607; 82746; 83036; 84153; 84439; 84443; 85025

== ENCOUNTER 2024-08-12 08:39 | Outpatient (REF) | payer OTHER, SELFPAY ==
[2024-08-12 09:45] LABS: Alanine Aminotransferase 58 U/L (0-40); Albumin Level 4.4 g/dL (3.5-5.0); Alkaline Phosphatase 42 U/L (39-117); Aspartate Amino Transferase 46 U/L (5-37); Bilirubin Direct 0.4 mg/dL (0.0-0.5); Bilirubin Total 1.2 mg/dL (0.0-1.0)
[2024-08-12 10:02] LABS: PSA,Total (Free>4and<10) 3.92 ng/mL (0.00-4.00)
[2024-08-12 10:04] LABS: HBS Num1 0.34 mIU/mL (0-7.99); HBsAGNum1 0.34 S/CO (0.00-0.99); Hepatitis B Core Antibody Nonreactive (Nonreactive); Hepatitis B Surface Antigen Negative (Negative); ~HepC Num1 0.09 S/CO (0.00-0.79); ~Hepatitis B Surface Antibody NONREACTIVE (Nonreactive); ~Hepatitis C Antibody Nonreactive (Nonreactive)
== END 2024-08-12 08:40 | disposition home or self-care (01) ==
LOC: HO.LAB 08:39
PROVIDERS: PCP Internal Medicine; Visit Provider Internal Medicine
DX: R97.20 Elevated prostate specific antigen [PSA] (principal); R79.89 Other specified abnormal findings of blood chemistry; Z12.5 Encounter for screening for malignant neoplasm of prostate
CPT/HCPCS: 36415; 80076; 84153; 86704; 86706; 86803; 87340

== ENCOUNTER 2024-08-13 11:19 | Outpatient (AMB) | payer OTHER, SELFPAY ==
--- NOTE | 2024-08-13 11:20 | MHC.PC.OV ---
Vital Signs 08/13/24 11:21 08/13/24 11:40 Height 5 ft 10 in Weight 359 lb 12.71 oz BMI 51.6 BP 160/80 H 124/70 Blood Pressure Location Lt brachial Lt brachial Position Sitting Sitting Pulse 66 Pulse Source Pulse Oximeter Pulse Oximetry (%) 98 Oxygen Delivery Method Room Air Intake Visit Reasons: IGT, HTN Intake Note: Patient is here to follow up on IGT, HTN. Balance Engineer Required: No Legal Services Professional: Not Required per policy Accompanied by: Self / Same As Patient Allergies Penicillins Allergy (Mild, Verified 08/13/24 11:21) UNKNOWN bupropion [From WELLBUTRIN] Allergy (Unknown, Verified 08/13/24 11:21) UNKNOWN lisinopril [LISINOPRIL] Allergy (Unknown, Verified 08/13/24 11:21) FAINTING Medication List - Last Reconciled 08/13/24 by Yuri Rowe MD amlodipine 5 mg PO DAILY aspirin (Adult Aspirin Regimen) 81 mg PO DAILY cholecalciferol (vitamin D3) 50 mcg PO DAILY 90 days clotrimazole 1% 1 appl topical BID 4 weeks compr.stocking,knee,long,x-lrg As directed 20-30 mm HG [CPAP AUTO PAP 6-20 cm H20 humidified air As directed] cyclosporine 0.05% (Restasis) 1 drp ophthalmic (eye) Q12H diclofenac sodium 1% (Voltaren Arthritis Pain) 4 grams topical QID fexofenadine 180 mg PO DAILY fluticasone propionate 50 mcg/actuation 2 sprays intranasal DAILY [hyperbaric rollator walker with seat As directed] ibuprofen 600 mg PO Q6H PRN 90 days melatonin 10 mg PO BEDTIME PRN metoprolol tartrate 100 mg PO BID miconazole nitrate 2% (Zeasorb AF) 1 appl topical BID olmesartan (Benicar) 20 mg PO DAILY 30 days simvastatin 20 mg PO BEDTIME testosterone 2 pumps topical DAILY 28 days Tobacco use date assessed: 08/13/24 Fall risk assessment: No Falls in past year Last assessed Fall Risk: 08/13/24 Dental Screening Dental Screen Date: 03/25/24 HPI IGT, HTN HPI Details 68-year-old morbidly obese male with hypogonadism hypertension hypercholesterolemia obstructive sleep apnea impaired glucose tolerance coming in for follow-up. Last seen in 03/24/2024. Patient does have a right footdrop. Patient's colonoscopy is due had it in November 2018 with tubular adenoma. Patient does follow-up with urology on testosterone [facility] Medical History Right foot drop Left shoulder pain Right leg DVT Obesity Hypercholesterolemia Allergic rhinitis Knee osteoarthritis Hypogonadism BPH (benign prostatic hyperplasia) Obstructive sleep apnea Anemia Peripheral vascular disease Hypertension Surgical History Hx of tonsillectomy History of cataract surgery History of total left hip arthroplasty Family History Father Acute CVA (cerebrovascular accident) Diabetes Hypertension Stroke Mother Colon cancer Diabetes Hypertension Heart attack Brother No problems noted. Sister Depression Other Cancer Social History Housing: Apartment Alcohol intake: current Alcohol intake frequency: a few times a week Alcohol type: beer Comment: QD 3 drinks Patient Tobacco Use Status: Former Tobacco user Tobacco use type: Cigarette Years Smoked: stopped 2018 e-Cigarette/Vaping Use: Never Used Second Hand Smoke Exposure: No service: No Current occupational status: disabled Cognitive needs: Yes (walker ) Hearing needs: No Vision needs: Yes (glasses) Questionnaire Thrive Questionnaire Date Thrive assessed: 03/25/24 Are you currently unemployed and looking for a job?: No AUDIT C Alcohol Use Questionnaire (AUDIT-C) 2. How many drinks containing alcohol do you have on a typical day when you are drinking?: 3 or 4 3. How often do you have six or more drinks on one occasion?: Never Total Score: 1 SABINO-7 AMB Questionnaire SABINO-7 Date SABINO - 7 assessed: 03/25/24 Source: Developed by Drs. Lei Page, Mirna Reaves, Pradeep Max and colleagues, with an educational nicole from [employer] for Parents. Physical exam (Primary Care) Vital Signs: Last Vital Signs Pulse 66 08/13/24 11:21 BP 124/70 08/13/24 11:40 Pulse Ox 98 08/13/24 11:21 Oxygen Delivery Method Room Air 08/13/24 11:21 BMI result Body Mass Index 51.6 Tobacco/Smoking Status: Tobacco use Status Tobacco use date assessed 08/13/24 08/13/24 11:26 Patient Tobacco Use Status Former Tobacco user 08/13/24 11:26 Tobacco use type Cigarette 08/13/24 11:26 e-Cigarette/Vaping Use Never Used 08/13/24 11:26 Thrive Assessment: Date of Thrive Assessment Date Thrive assessed 03/25/24 08/13/24 11:26 Const General: alert; No acute distress Eyes Conjunctivae: conjunctivae normal Resp Auscultation: clear to auscultation bilaterally Cardio Rate: regular rate Rhythm: regular rhythm GI Inspection: Yes normal to inspection Extrem General: Yes normal to inspection and No edema Coding Level of Care Code Est Pt Level 4 (56403) Diagnoses Essential hypertension I10 Hypertension type: essential hypertension Peripheral vascular disease I73.9 Anemia, unspecified type D64.9 Anemia type: unspecified type Hypercholesterolemia E78.00 Obstructive sleep apnea (adult) (pediatric) G47.33 Hypogonadism in male E29.1 Morbid obesity with BMI of 50.0-59.9, adult E66.01; Z68.43 Impaired fasting glucose R73.01 PSA elevation R97.20 LFT elevation R79.89 Tubular adenoma of colon D12.6 Assessment & Plan Assessment & Plan (1) Hypertension: Comment: Catheterization done July 2013[place] cardiovascular Code(s): I10 - Essential (primary) hypertension Category: Medical Qualifiers: Hypertension type: essential hypertension Qualified Code(s): I10 - Essential (primary) hypertension Plan: Continue with blood pressure medication. Decrease salt intake and exercise on amlodipine, metoprolol Benicar. (2) Peripheral vascular disease: Code(s): I73.9 - Peripheral vascular disease, unspecified Category: Medical Plan: When sitting down elevate the legs, exercise, and support stockings (3) Anemia: Code(s): D64.9 - Anemia, unspecified Category: Medical Qualifiers: Anemia type: unspecified type Qualified Code(s): D64.9 - Anemia, unspecified Plan: Anemia of chronic disease continuing to monitor (4) Hypercholesterolemia: Code(s): E78.00 - Pure hypercholesterolemia, unspecified Category: Medical Plan: Avoid fried foods, chicken skin, eggs, butter margarine, pastries and meat. Be it pork or beef they have a lot of cholesterol LDL goal of less than 130 and triglyceride of less than 150 on simvastatin 20 mg once a day (5) Obstructive sleep apnea (adult) (pediatric): Comment: CPAP Code(s): G47.33 - Obstructive sleep apnea (adult) (pediatric) Category: Medical Plan: Continue to use the CPAP more than 4 hours a night and benefits from this (6) Hypogonadism in male: Code(s): E29.1 - Testicular hypofunction Category: Medical Plan: Continue to follow-up with urology on testosterone (7) Morbid obesity with BMI of 50.0-59.9, adult: Code(s): E66.01 - Morbid (severe) obesity due to excess calories; Z68.43 - Body mass index [BMI] 50.0-59.9, adult Category: Medical Plan: Diet and exercise (8) Impaired fasting glucose: Code(s): R73.01 - Impaired fasting glucose Category: Medical Plan: Decrease the amount of carbohydrate intake, pasta, bread, rice and potatoes are all sugar and that is aside from all the sweet stuff, remember that fruits are good but they are Sweet also. (9) PSA elevation: Code(s): R97.20 - Elevated prostate specific antigen [PSA] Category: Medical Plan: Patient is being followed up by Urology (10) LFT elevation: Code(s): R79.89 - Other specified abnormal findings of blood chemistry Category: Medical Plan: Retesting and ultrasound requested (11) Tubular adenoma of colon: Comment: 2019 Code(s): D12.6 - Benign neoplasm of colon, unspecified Category: Medical Plan: Patient has a planned procedure for colonoscopy Orders: Referrals Podiatry Referral M21.371 - Foot drop, right foot Gastroenterology Referral D12.6 - Benign neoplasm of colon, unspecified
[2024-08-13 11:21] VITALS: BP 160/80; PULSE 66; O2SAT 98; BMI 51.6
[2024-08-13 11:40] VITALS: BP 124/70
== END 2024-08-13 11:51 | disposition home or self-care (01) ==
PROVIDERS: PCP Internal Medicine; Visit Provider Internal Medicine
DX: I10 Essential (primary) hypertension (principal); I73.9 Peripheral vascular disease, unspecified; E66.813 Obesity, class 3; Z68.43 Body mass index [BMI] 50.0-59.9, adult; D64.9 Anemia, unspecified; E78.00 Pure hypercholesterolemia, unspecified; G47.33 Obstructive sleep apnea (adult) (pediatric); E29.1 Testicular hypofunction; R73.01 Impaired fasting glucose; R97.20 Elevated prostate specific antigen [PSA]; D12.6 Benign neoplasm of colon, unspecified

== ENCOUNTER → 2024-08-13 11:19 | Outpatient (BNVA) | payer OTHER, SELFPAY | PROVIDERS: PCP Internal Medicine; Visit Provider Internal Medicine | DX: I10 Essential (primary) hypertension (principal); I73.9 Peripheral vascular disease, unspecified; D64.9 Anemia, unspecified; E78.00 Pure hypercholesterolemia, unspecified; G47.33 Obstructive sleep apnea (adult) (pediatric); E66.01 Morbid (severe) obesity due to excess calories; Z68.43 Body mass index [BMI] 50.0-59.9, adult; R73.01 Impaired fasting glucose; R97.20 Elevated prostate specific antigen [PSA]; R79.89 Other specified abnormal findings of blood chemistry; D12.6 Benign neoplasm of colon, unspecified | CPT/HCPCS: 99212 ==

== ENCOUNTER 2024-08-21 10:10 | Outpatient (REF) | payer OTHER, SELFPAY ==
--- NOTE | ~2024-08-21 | US_ITS ---
EXAMINATION: US ABDOMEN COMPLETE CLINICAL INFORMATION: Other specified abnormal findings of blood chemistry. COMPARISON: None available. TECHNIQUE: Real-time imaging of the abdominal viscera. FINDINGS: PANCREAS: The visualized portion of the pancreas head and body are normal, portion of the pancreatic body and tail, not visualized are obscured by bowel gas. ABDOMINAL AORTA: The proximal, mid, and distal segments are normal in caliber. INFERIOR VENA CAVA: Visualized portions are normal. LIVER: The liver is normal in size. The liver contour is normal. Increased echogenicity of the liver parenchyma, this can be seen in the setting of hepatic steatosis or liver parenchymal disease. No focal hepatic lesion. There is no intrahepatic biliary duct dilatation seen. GALLBLADDER: There are gallstones The gallbladder is physiologically distended without evidence of sludge, polyps, wall thickening or pericholecystic fluid. COMMON BILE DUCT: Normal in caliber measuring 0.5 cm in diameter. RIGHT KIDNEY: There are renal cysts upper pole 1.5 cm, middle pole not well visualized No hydronephrosis or renal calculi. The kidney measures 12.3 cm in maximum dimension. LEFT KIDNEY: Normal. No hydronephrosis. No renal calculi or focal parenchymal lesions. The kidney measures 12.4 cm in maximum dimension. SPLEEN: Enlarged The spleen measures 14.0 cm in maximum dimension. FREE FLUID: None. US/US abdomen complete IMPRESSION: 1. Increased echogenicity of the liver parenchyma, this can be seen in the setting of hepatic steatosis or liver parenchymal disease. 2. Splenomegaly. 3. Cholelithiasis without ultrasound evidence of acute cholecystitis. 4. Right renal cysts. Electronically signed by: Rosie Méndez MD 09/21/2024 06:54 PM EST
== END 2024-08-21 10:11 | disposition home or self-care (01) ==
LOC: HO.US 10:10
PROVIDERS: PCP Internal Medicine; Visit Provider Internal Medicine
DX: R79.89 Other specified abnormal findings of blood chemistry (principal)
CPT/HCPCS: 76700

== ENCOUNTER 2024-10-01 10:42 | Outpatient (REF) | payer OTHER, SELFPAY ==
[2024-10-01 11:46] LABS: Hematocrit 41.8 % (42.0-52.0); Hemoglobin 14.9 g/dl (14.0-18.0); Mean Corpuscular HGB Conc 35.6 g/dl (31.0-36.0); Mean Corpuscular Hemoglobin 32.9 pg (27.0-33.0); Mean Corpuscular Volume 92.3 fL (80.0-98.0); Mean Platelet Volume 9.3 fL (9.4-12.4); Platelet Count 139 X10*3/uL (160-400); Red Blood Count 4.53 X10*6/uL (4.60-5.80); Red Cell Distribution Width 13.3 % (11.0-16.0); White Blood Count 5.3 X10*3/uL (4.8-10.8)
[2024-10-01 12:33] LABS: Prostate Specific Antigen 3.64 ng/mL (<0.05-4.0)
[2024-10-06 01:28] LABS: Testosterone, Total 624 ng/dL (250-1100)
== END 2024-10-01 10:43 | disposition home or self-care (01) ==
LOC: HO.LAB 10:42
PROVIDERS: PCP Internal Medicine; Visit Provider Urology
DX: E29.1 Testicular hypofunction (principal); Z12.5 Encounter for screening for malignant neoplasm of prostate
CPT/HCPCS: 36415; 84153; 84403; 85027

== ENCOUNTER 2024-10-10 11:34 | Outpatient (AMB) | payer OTHER, SELFPAY ==
--- NOTE | 2024-10-10 11:34 | A.OFFVIS_ITS ---
Intake Visit Reasons: 6m/labs Intake Note: Patient is Presents today for a 6M follow-up/LABS Urology Med: Testosterone Antibiotic Allergy: Penicillin, Blood Thinner: Aspirin Cigarette Stamper Required: No Accompanied by: Self / Same As Patient Allergies Penicillins Allergy (Mild, Verified 10/10/24 11:35) UNKNOWN bupropion [From WELLBUTRIN] Allergy (Unknown, Verified 10/10/24 11:35) UNKNOWN lisinopril [LISINOPRIL] Allergy (Unknown, Verified 10/10/24 11:35) FAINTING HPI Comments Details: Carroll is a very pleasant male. He is a patient of Dr. Rowe. He is seen for the following urologic conditions - hypogonadism Hypogonadism follow-up Refill provided Great response to sleep apnea machine with significant improvement in energy 6 month follow-up Discussed weight loss Hypogonadism: He presents today for further evaluation and followup of his hypogonadism - stable numbers - use 2 pumps every day Initial symptoms include erectile dysfunction Yes decreased libido Yes change in mood/depression Yes in muscle size/strength Yes increased fatigue/malaise Yes The onset of symptoms has been gradual Associate conditions include chronic pain with opioid use Yes obstructive sleep apnea No CAD No obesity No stress - financial, family, employment No heavy alcohol or illicit drug use No Laboratory results 12/23 , baseline, testosterone 250, low LH amd FSH 04/22 , testosterone 757, 05/23 T 405, PSA 2.5, 12/25 T 894 PSA 2.5, 12/26 T 717, PSA 2.32, 06/25 T pend, PSA 2.5, Hct 36.9, 01/24 T 482 P 2.7 H 41, 07/27 853 2.2 40, 01/25 T 450 2.8 42, 09/27 595 3.2 42, 03/28 T 442 3.2 41, 09/28 624 42 3.6 Current therapy includes gel/cream exogenous testosterone [facility] Medical History Right foot drop Left shoulder pain Right leg DVT Obesity Hypercholesterolemia Allergic rhinitis Knee osteoarthritis Hypogonadism BPH (benign prostatic hyperplasia) Obstructive sleep apnea Anemia Peripheral vascular disease Hypertension Surgical History Hx of tonsillectomy History of cataract surgery History of total left hip arthroplasty Family History Father Acute CVA (cerebrovascular accident) Diabetes Hypertension Stroke Mother Colon cancer Diabetes Hypertension Heart attack Brother No problems noted. Sister Depression Other Cancer Social History Housing: Apartment Alcohol intake: current Alcohol intake frequency: a few times a week Alcohol type: beer Comment: QD 3 drinks Patient Tobacco Use Status: Former Tobacco user Tobacco use type: Cigarette Years Smoked: stopped 2018 e-Cigarette/Vaping Use: Never Used Second Hand Smoke Exposure: No service: No Current occupational status: disabled Cognitive needs: Yes (walker ) Hearing needs: No Vision needs: Yes (glasses) Review of Systems Const Denies chills and Denies fever(s) Card Reports no additional complaints and Denies syncope Resp Denies cough GI Denies abdominal pain and Denies heartburn Reports as per HPI and Denies change in libido Neuro Denies syncope Psych Denies change in libido Endo Denies change in libido Physical Exam Const General: cooperative, healthy appearing, comfortable and no acute distress Orientation/consciousness: patient oriented x3 HEENT Face and sinus: Yes normal facial exam Mouth: moist mucous membranes Neck Neck: Yes normal visual inspection, Yes full ROM and Yes trachea midline Chest Chest palpation & inspection: normal inspection of the chest Resp Effort & Inspection: normal respiratory effort, able to speak in complete sentences and no respiratory distress GI Inspection: Yes normal to inspection Back/Spine/Pelvis Cervical Spine: normal cervical lordosis Thoracic/Lumbar Spine: thoracic and lumbar spine normal to inspection Skin General skin exam: no rashes or lesions noted Neuro General: patient oriented x3, gait normal, tone normal and moves all extremities Extrem General: Yes normal to inspection and Yes capillary refill normal Assessment & Plan Assessment & Plan (1) PSA elevation: Code(s): R97.20 - Elevated prostate specific antigen [PSA] Category: Medical (2) Hypogonadism in male: Code(s): E29.1 - Testicular hypofunction Category: Medical Plan Continue with gel Orders: Orders Testosterone, Total 6 Months E29.1 - Testicular hypofunction Complete Blood Count no Diff 6 Months E29.1 - Testicular hypofunction Prostate Specific Antigen 6 Months E29.1 - Testicular hypofunction Patient Instructions: Imaging studies, laboratory and physical exam results were discussed and reviewed in detail. No major barriers to patient understanding were identified. An opportunity to ask questions regarding the treatment plan was provided. All questions were answered. The patient expressed understanding and agreement with the above treatment plan. The patient is aware they should contact our office by phone for worsening of their current condition or the appearance of new urologic symptoms. Compliance is encouraged with any medications and followup testing that is ordered. It is a privilege to participate in the urologic care of your patient. If you have any questions or concerns regarding treatment for the above conditions, or other urologic issues, please do not hesitate to contact me. The office telephone contact is [phone]. This note is constructed using voice recognition software. While every effort has been made to ensure accuracy dog groomer errors may have been included. Yours sincerely, Dr Rikki Gunn MD, [facility] - Urology Providers of Expert, Compassionate Care for the Genitourinary System Coding Level of Care Code Est Pt Level 3 (31044) Diagnoses PSA elevation R97.20 Hypogonadism in male E29.1
== END 2024-10-10 12:12 | disposition home or self-care (01) ==
LOC: HO.HUSH 11:34
PROVIDERS: PCP Internal Medicine; Visit Provider Urology
DX: R97.20 Elevated prostate specific antigen [PSA] (principal); E29.1 Testicular hypofunction
CPT/HCPCS: 99213

== ENCOUNTER → 2024-10-10 11:34 | Outpatient (BNVA) | payer OTHER, SELFPAY | PROVIDERS: PCP Internal Medicine; Visit Provider Urology | DX: R97.20 Elevated prostate specific antigen [PSA] (principal); E29.1 Testicular hypofunction | CPT/HCPCS: 99212 ==

== ENCOUNTER 2025-01-22 11:22 | Outpatient (AMB) | payer OTHER, SELFPAY ==
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
[2025-01-22 11:34] VITALS: BP 142/80; PULSE 65; O2SAT 97; BMI 52.2
[2025-01-22 11:58] VITALS: BP 126/70
== END 2025-01-22 12:18 | disposition home or self-care (01) ==
LOC: HO.HMCH 11:22
PROVIDERS: PCP Internal Medicine; Visit Provider Internal Medicine
DX: Z00.00 Encounter for general adult medical examination without abnormal findings (principal); I73.9 Peripheral vascular disease, unspecified; E66.01 Morbid (severe) obesity due to excess calories; Z68.43 Body mass index [BMI] 50.0-59.9, adult; I10 Essential (primary) hypertension; E78.00 Pure hypercholesterolemia, unspecified; E29.1 Testicular hypofunction; G47.33 Obstructive sleep apnea (adult) (pediatric); K76.0 Fatty (change of) liver, not elsewhere classified; K80.20 Calculus of gallbladder without cholecystitis without obstruction; D12.6 Benign neoplasm of colon, unspecified; M21.371 Foot drop, right foot

== ENCOUNTER → 2025-01-22 11:22 | Outpatient (BNVA) | payer OTHER, SELFPAY | PROVIDERS: PCP Internal Medicine; Visit Provider Internal Medicine | DX: Z00.00 Encounter for general adult medical examination without abnormal findings (principal); I10 Essential (primary) hypertension; I73.9 Peripheral vascular disease, unspecified; E29.1 Testicular hypofunction; G47.33 Obstructive sleep apnea (adult) (pediatric); K76.0 Fatty (change of) liver, not elsewhere classified; K80.20 Calculus of gallbladder without cholecystitis without obstruction; D12.6 Benign neoplasm of colon, unspecified; M21.371 Foot drop, right foot; R73.01 Impaired fasting glucose | CPT/HCPCS: 96127; 99397 ==

== ENCOUNTER 2025-03-24 11:23 | Outpatient (AMB) | payer OTHER, SELFPAY ==
--- NOTE | 2025-03-24 11:26 | A.OFFVIS_ITS ---
Vital Signs 03/24/25 11:34 Height 5 ft 10 in Weight 360 lb BMI 51.6 BP 138/68 Blood Pressure Location Rt brachial Position Sitting Pulse 82 Pulse Source Pulse Oximeter Pulse Oximetry (%) 95 Oxygen Delivery Method Room Air Intake Visit Reasons: Colonoscopy Screening Intake Note: NEW PATIENT for RECALL colo. Last was with Dr. Snell in 2019. CC; Pt denies any GI sx at this time. Pt does report recently starting GLP 1 therapy x5-6 weeks ago which has been going well with the exception of PM hypotensive episodes which he is attempting to manage with his PCP. Pt is on HTN therapy. Pharmacy; [facility] Physical Therapy Manager Required: No Accompanied by: Self / Same As Patient Allergies Penicillins Allergy (Mild, Verified 03/24/25 11:26) UNKNOWN bupropion [From WELLBUTRIN] Allergy (Unknown, Verified 03/24/25 11:26) UNKNOWN lisinopril [LISINOPRIL] Allergy (Unknown, Verified 03/24/25 11:) FAINTING HPI HPI Colonoscopy Screening: Details: 69 year old? male here today for pre colonoscopy screening.? Patient was sent to us by his PCP.? Patient had colonoscopy in November of 2018. One tubular adenoma found. Patient denies any gastrointestinal symptoms in the past or at present.? Patient reports family history of CRC. Patient's mother of colon cancer at age 75. ? Denies history of difficulty with sedation or anesthesia in the past.? Patient has a history of sleep apnea. Using CPAP every night..? Denies any history of cardiac, renal, pulmonary, or hepatic disease.?? No history of infectious? diseases like hepatitis A, B, C, HIV or tuberculosis.? Patient is on low-dose aspirin PFSH Medical History (Updated 03/24/25 @ 20:36 by Sarai Minaya, [facility]-) Family history of colon cancer Obesity, morbid Right foot drop Left shoulder pain Right leg DVT Obesity Hypercholesterolemia Allergic rhinitis Knee osteoarthritis Hypogonadism BPH (benign prostatic hyperplasia) Obstructive sleep apnea Anemia Peripheral vascular disease Hypertension Surgical History Hx of tonsillectomy History of cataract surgery History of total left hip arthroplasty Family History Father Acute CVA (cerebrovascular accident) Diabetes Hypertension Stroke Mother Colon cancer Diabetes Hypertension Heart attack Brother No problems noted. Sister Depression Other Cancer Social History Housing: Apartment Alcohol intake: current Alcohol intake frequency: a few times a week Alcohol type: beer Comment: QD 3 drinks Patient Tobacco Use Status: Former Tobacco user Tobacco use type: Cigarette Years Smoked: stopped 2018 e-Cigarette/Vaping Use: Never Used Second Hand Smoke Exposure: No service: No Current occupational status: disabled Cognitive needs: Yes (walker ) Hearing needs: No Vision needs: Yes (glasses) Physical Exam Vital Signs: Last Vital Signs Pulse 82 03/24/25 11:34 BP 138/68 03/24/25 11:34 Pulse Ox 95 03/24/25 11:34 Oxygen Delivery Method Room Air 03/24/25 11:34 BMI result Body Mass Index 51.6 Assessment & Plan Assessment & Plan (1) Hepatic steatosis: Code(s): K76.0 - Fatty (change of) liver, not elsewhere classified Category: Medical (2) Cholelithiasis: Code(s): K80.20 - Calculus of gallbladder without cholecystitis without obstruction Category: Medical Qualifiers: Cholelithiasis location: gallbladder Cholecystitis presence: without cholecystitis Biliary obstruction: without biliary obstruction Qualified Code(s): K80.20 - Calculus of gallbladder without cholecystitis without obstruc tion (3) Tubular adenoma of colon: Comment: 2019 Code(s): D12.6 - Benign neoplasm of colon, unspecified Category: Medical (4) Family history of colon cancer: Code(s): Z80.0 - Family history of malignant neoplasm of digestive organs Category: Medical (5) Screen for colon cancer: Code(s): Z12.11 - Encounter for screening for malignant neoplasm of colon Plan Patient denies any GI, cardiac or respiratory symptoms.? Denies any issues with anesthesia in the past.? History of sleep apnea using CPAP.? No history infectious diseases in the past or present.? Patient is on low-dose aspirin.? Family history of CRC and personal history of tubular adenoma.? Patient denies melena, hematochezia, unintentional weight loss or ribbon like stools.? Discussed at length the pre-procedure,? prep, diet & medications as well as what to expect prior, during and after the procedure.?? Stressed the importance of good bowel prep.? Recommended the use of Vaseline or Calmoseptine OTC & baby wipes with bowel movements to promote comfort.? ?Patient verbalizes understanding and agrees to plan of care.? He was given the opportunity to ask questions and all questions answered.? We will see him after the procedure.? Medications: New polyethylene glycol 3350 (Miralax) As directed by gastroenterology department at [facility] 238 grams PO ONCE 238 grams 0RF Z12.11 - Encounter for screening for malignant neoplasm of colon bisacodyl (Dulcolax (bisacodyl)) take 4 tabs at noon the day before your colonoscopy 20 mg (4 x 5 mg) PO ONCE 4 tabs 0RF 1 day Z12.11 - Encounter for screening for malignant neoplasm of colon Coding Level of Care Code New Pt Level 3 (44764) Diagnoses Hepatic steatosis K76.0 Calculus of gallbladder without cholecystitis without obstruction K80.20 Cholelithiasis location: gallbladder Cholecystitis presence: without cholecystitis Biliary obstruction: without biliary obstruction Tubular adenoma of colon D12.6 Family history of colon cancer Z80.0 Screen for colon cancer Z12.11 Time Spent (min) 40 Comment 30 minutes spent with patient and additional 10 minutes spent reviewing his records
[2025-03-24 11:34] VITALS: BP 138/68; PULSE 82; O2SAT 95; BMI 51.6
--- OUTSIDE RECORDS SUMMARY | 2025-03-24 12:41 | XMS_ITS ---
Author Organization [facility] Address [address] [place] [address] Care Team Providers Care Gravel Inspector Name Role Phone JaeOrlydebbie Primary Care Provider Unavailabl e Black, Stephy Unavailable [phone] Allergies Allergen (clinical drug ingredient) Drug/Non Drug Allergy documented on EMR Reaction Allergy Type Onset Date Status Penicillin Unknown Drug Allergy Active REASON FOR VISIT At Risk Footcare, Painful Nail(s) aggravated by shoes and causing difficulty standing/walking., Painful Toe(s), Skin problem(s) Medications Medication SIG (Take, Route, Frequency, Duration) Notes Start Date End Date Status Ammonium Lactate 12 % 1 application Exte rnally to affected areas of dry skin to feet except for between the toes Twice a day for 30 days Active Amlodipine & Diet Manage Prod Active Aspirin Adult Low Dose Active Vitamin D 50 MCG (1999 UT) 1 tablet Oral ly Once a day Active Voltaren 1 % as directed Externally Active Olmesartan Medoxomil 20 MG 1 tablet Oral ly Once a day Active Fexofenadine HCl 180 MG 1 tablet Swallow whole with water; do not take with fruit juices. Orally Once a day Active Ibuprofen 600 MG 1 tablet with food o r milk as needed Orally Three times a day Active Metoprolol Succinate 100 MG 1 capsule Or ally Once a day Active Social History Tobacco Use: Social History Observation Description Date Details (start date - stop date) Never Smoker NA - NA Tobacco Control (Standard) Question Answer Notes Tobacco use: Nonsmoker Additional Findings: Tobacco non-user Current no nsmoker AUDIT-C (Standard) Question Answer Notes Did you have a drink contain ing alcohol in the past year? Yes How often did you have a dri nk containing alcohol in the past year? Monthly or less (1 point) How many drinks did you have on a typical day when you were drinking in the past year? 1 or 2 drinks (0 point) How often did you have six o r more drinks on one occasion in the past year? Less than monthly (1 point) Points 2 Interpretation Negative Problems Problem Type SNOMED Code ICD Code Onset Dates Problem Status W/U Status Risk Notes Problem Atherosclerosis of [place] arteries of the extremities (204648031633758) Atherosclerosis of [place] artery of both lower extremities, with unspecified presence of clinical manifestation (I70.203) Active confirmed Q7(A), Q8(2B), Q9(1B,2 C) Problem Acquired hammer toe of right foot (9314940834237422) Other hammer toe(s) (acquired), right foot (M20.41) Active confirmed Problem Localized, primary osteoarthritis of the ankle and/or foot (871103253) Arthritis of joint of lesser toe, right (M19.071) Active confirmed Problem Neuropathy (707042598) Peripheral polyneuropathy (G62.9) Active confirmed Vital Signs Height 5ft 11 in in 01/09/2025 Weight 360 lbs 01/09/2025 BMI 50.2 kg/m2 01/09/2025 Blood pressure systolic 132 mm Hg 01/10/20 25 Blood pressure diastolic 77 mm Hg 025 Heart Rate 78 /min 01/09/2025 Procedures Procedure Date Ordered Date Performed Result Body Sit e 36647-RODNFJD NAIL, 6 OR MORE 01/09/2025 N/A 62193-KTIP SKIN LESIONS, 2 TO 4 01/09/2025 N/A Encounters Encounter Location Date Provider Diagnosis [facility] [address] [address] 01/09/2025 Stephy Black Atherosclerosis of n ative artery of both lower extremities, with unspecified presence of clinical manifestation I70.203 ; Other hammer toe(s) (acquired), right foot M20.41 ; Tinea unguium B35.1 ; Pain in right toe(s) M79.674 ; Pain in left toe(s) M79.675 ; Arthritis of joint of lesser toe, right M19.071 ; Subluxation of metatarsophalangeal joint of toe, initial encounter S93.149A ; Xerosis of skin L85.3 ; Peripheral polyneuropathy G62.9 ; Right foot drop M21.371 and Blood blister T14.8XXA Assessments Encounter Date Diagnosis (ICD Code) Assessment Notes Treatment Notes Treatment Clinical Notes Section Notes 01/09/2025 Atherosclerosis of [place] artery of both lower extremities, with unspecified presence of clinical manifestation (ICD-10 - I70.203) Q7(A), Q8(2B), Q9(1B,2C) o 01/09/2025 Other hammer toe(s) (acquired), right foot (ICD-10 - M20.41) o 01/09/2025 Tinea unguium (ICD-1 0 - B35.1) o 01/09/2025 Pain in right toe(s) (ICD-10 - M79.674) o 01/09/2025 Pain in left toe(s) (ICD-10 - M79.675) o 01/09/2025 Arthritis of joint o f lesser toe, right (ICD-10 - M19.071) o 01/09/2025 Subluxation of metatarsophalangeal joint of toe, initial encounter (ICD-10 - S93.149A) o 01/09/2025 Xerosis of skin (ICD -10 - L85.3) o 01/09/2025 Peripheral polyneuropathy (ICD-10 - G62.9) o 01/09/2025 Right foot drop (ICD -10 - M21.371) o 01/09/2025 Blood blister (ICD-1 0 - T14.8XXA) o Plan Of Treatment Medication Medication Name Sig Start Date Stop Date Notes Ammonium Lactate 12 % 1 application Exte rnally to affected areas of dry skin to feet except for between the toes Twice a day for 30 days Pending Test Test Name Order Date 04455-DBDSPZJ NAIL, 6 OR MORE 01/09/2025 37385-FTCI SKIN LESIONS, 2 TO 4 01/10/20 25 Next Appt Details Follow Up: prn, Reason: Provider Name:Stephy Mix , 04/14/2025 10:15:00 AM, [address] [facility], [place], [address], Procedure Notes * Category Sub-Category Detail Notes Debride Nail 6-10 Nail debridement Due to the cl inical pathology outlined in the exam findings, performance of this nail treatment is medically necessary as its management by an unskilled/untrained nonprofessional would put this patients foot and overall health at risk. Therefore, debridement to affected nail(s), as described in exam (TA, T1, T2, T3, T4, T5, T6, T7, T8, T9,), was performed exclusively by the physician of record to reduce/remove overall nail length, girth, thickness, subungual debris, and necrotic tissue, by manual and/or electrical means through the use of a nail nipper and/or dremel-type fiberglass grinder, to a more viable healthy nail plate or bed tissue 6-10 nails in total. Silver nitrate was used for any petechial bleeding as necessary. Definitive antifungal treatment options, both pharmaceutical and surgical, have been reviewed and discussed with the patient. The patient solely prefers the use of intermittent/as needed professional debridement services for their nail condition and understands the need for additional periodic treatments to maintain effectiveness in symptomatic relief - 86633 Keratoma Treatment Parring or Cutting o f Benign Hyperkeratotic Lesion(s) , (-56) 2-4 Lesions - Due to the at risk nature of the patients medical condition as documented in the exam findings, performance of this keratoderma treatment is medically necessary as its management by an unskilled/untrained nonprofessional would put this patients foot and overall health at risk. Therefore, the benign hyperkeratotic lesions, ( 2 ) in total, locations as stated and described in the exam ( ,Medial plantar,B/L,), were pared, and/or cut utilizing a sterile 15 blade, tissue nippers, and/or power dremel instrumentation by the physician of record - 90338 Progress Notes * Carroll MENDOZADOB:[birth year] (69 yo M)Acc No.[id number]:01/09/2025 Progress Notes Patient:?REJICarroll J Provider:?Stephy Mix DPM :1955???Age:69 Y???Sex:Male Cody e:01/09/2025 Address[address], [id number] Pcp:Yuri Rowe Subjective: * Chief Complaints: * ???At Risk FootcarePainful N ail(s) aggravated by shoes and causing difficulty standing/walking.Painful Toe(s)Skin problem(s) * HPI: ???At Risk footcare:?Pt States Last PCP Visit:?Date?10/23/2024 ???Toe pain:?Nature:?tenderness, discoloration.?Location:?Right foot.?Duration:?, several weeks.?Course:?worse.?Aggravated by:?any pressure, shoes.?Treatments:?rest/alter normal daily activity, change in shoes.?Skin problems:?Nature:?dryness , scaling.?Location:?B/L .?Duration:?several days.?Course:?worse.? * ROS:?General/Constitutional:?Nausea?denies.?Vomiting?denies.?Hunger Thirst?denies.?Loss appetite?denies.?Chills?denies.?Fatigue?denies.?Fever?denies.?Night Sweats?denies.?Unexplained weight loss?denies.?Unexplained weight gain?denies.?HEENTM:?Dentures?denies.?Dizziness?denies.?Glasses/contacts?denies.?Retinopathy?de nies.?Blurred/double vision?denies.?TMJ?denies.?Discharge/drainage?denies.?Implants?denies.?Sore throat?denies.?Dental implants?denies.?Hard of hearing ?denies.?Difficulty chewing/swallowing/speaking?denies.?Nose bleeds?denies.?Sore mouth?denies.?Respiratory:?On Oxygen?denies.?Pneumonia/pleurisy?denies.?Bronchitis?denies.?Emphysema?denies.?C oughing?denies.?Cough blood?denies.?Shortness of breath?denies.?Wheezing?denies.?Cardiovascular:?Pacemaker?denies.?MVP?denies.?WPW?denies.?CHF?denies.?Heart attack?denies.?Septal defect?denies.?Rapid beat?denies.?Chest pain ?denies.?Atrial Fib.?denies.?Murmur/Palpitations?denies.?Gastrointestinal:?Hemorrhoids?denies.?Stomach/Abdominal pain?denies.?Dark blood stool?denies.?Irritable bowel ?denies.?Constipation?denies.?Diarrhea?denies.?Hematology:?Swelling?admits.?Clots?denies.?Varicose Veins?denies.?Bruising?denies.?Bleeding problem?denies.?Genitourinary:?Blood urine?denies.?Frequent/Painfu/urination/bladder control?denies.?Kidney stones?denies.?Infection (UTI)?denies.?Nephropathy?denies.?sex trans dis (STD)?denies.?Prostate?denies.?Musculoskeletal:?Hammertoes?denies.?Bunions?denies.?Back Pain?denies.?Muscle Cramps/ Resting?denies.?Muscle cramps / walking?denies.?Generalized aches and pains?denies.?Weakness?denies.?Integ.:?Renee?denies.?Scars?denies.?Corns/calluses?denies.?Ingrown nails?admits.?Painful nails?denies.?Open Sores?denies.?Rashes?denies.?Neurologic:?Difficulty sleeping?denies.?Brain disorder?denies.?Numbness?denies.?Balance trouble?admits.?Confusion?denies.?Fainting/blackouts?denies.?Tingling?denies.?Tr emors?denies.? * Medical History:? * Surgical History:?hip replac ement catarcts * Hospitalization/Major Diagno stic Procedure:?Denies Past Hospitalization * Family History:?Mother: dece ased.?Father: .? * Social History:?Tobacco Use:?Tobacco Control (Standard)?Tobacco use:?Nonsmoker ?Additional Findings: Tobacco non-user?Current nonsmoker ???Drugs/Alcohol:?Drugs?Have you used drugs other than those for medical reasons in the past 12 months??No ???Miscellaneous:?Caffeine: yes, frequency:. ?Children: no. ?Marital status: single. ?Occupation: Retired. ???Drug/Alcohol:?AUDIT-C (Standard)?Did you have a drink containing alcohol in the past year??Yes ?How often did you have a drink containing alcohol in the past year??Monthly or less (1 point) ?How many drinks did you have on a typical day when you were drinking in the past year??1 or 2 drinks (0 point) ?How often did you have six or more drinks on one occasion in the past year??Less than monthly (1 point) ?Points?2 ?Interpretation?Negative * Medications:?TakingFexofenad ine HCl 180 MG Tablet 1 tablet Swallow whole with water; do not take with fruit juices. Orally Once a day Olmesartan Medoxomil 20 MG Tablet 1 tablet Orally Once a day Metoprolol Succinate 100 MG Capsule ER 24 Hour Sprinkle 1 capsule Orally Once a day Ibuprofen 600 MG Tablet 1 tablet with food or milk as needed Orally Three times a day Voltaren 1 % Gel as directed Externally Vitamin D 50 MCG (2000 UT) Tablet 1 tablet Orally Once a day Aspirin Adult Low Dose Amlodipine & Diet Manage Prod Medication List reviewed and reconciled with the patientTaking Fexofenadine HCl 180 MG Tablet 1 tablet Swallow whole with water; do not take with fruit juices. Orally Once a day Taking Olmesartan Medoxomil 20 MG Tablet 1 tablet Orally Once a day Taking Metoprolol Succinate 100 MG Capsule ER 24 Hour Sprinkle 1 capsule Orally Once a day Taking Ibuprofen 600 MG Tablet 1 tablet with food or milk as needed Orally Three times a day Taking Voltaren 1 % Gel as directed Externally Taking Vitamin D 50 MCG (2000 UT) Tablet 1 tablet Orally Once a day Taking Aspirin Adult Low Dose Taking Amlodipine & Diet Manage Prod Medication List reviewed and reconciled with the patient * Allergies:?Penicillinyes[All ergies Verified] Objective: * Vitals:?Ht:5ft 11 in, Wt:360 , BMI:50.2, Shoe size:11, BP:132/77mm Hg, HR:78/min, Ht-cm: 180.34 cm, Wt-k.29 kg. * Examination: ???General Examination: ?GENERAL APPEARANCE:?Reveals a pleasant, alert, well nourished, well- developed, well hydrated individual, who demonstrates proper attention to hygiene/body habitus, and is in no acute distress, Pt serves as own historian for office visit today.?ORIENTED:?person, place, and time.?FOOT EXAM:?Lower Extremity Neurological Exam performed:?Yes ?Visual exam of foot performed:?Yes ?Date?01/09/2025 ?Sensory testing performed:?sensations diminished ?Sensory and motor testing performed:?sensations diminished ?Pedal pulse taking performed:?absent ?Footwear Evaluation?Footwear Evaluation performed:?Yes?Vascular: ?DP PULSES (B):? 0/4, B/L.?PT PULSES (B):? 0/4, B/L.?CAPILLARY FILL TIME:? delayed, all digits, B/L.?TROPHIC CONDITION-TEXTURE/ELASTICITY/TURGOR/HAIR GROWTH (B):? decreased, fragile, thin, shiny skin, with sparse to absent hair growth, B/L.?TEMPERTURE GRADIENT (C):? decreased, cool to cool, proximal to distal, B/L.?PIGMENTATION:?cyanotic.?EDEMA (C):?, 4/4, non-pitting, Leg(s), Foot, B/L.?CLAUDICATION (C):?denies, B/L.?REST PAIN:?denies, B/L.?PARESTHESIA (C):?absent, B/L.?BURNING (C):?absent, B/L.?Nails: ?NAILS are:? Elongated, overgrown, dystrophic, lytic, greater than 3mm thick, discolored and friable with crumbly malodorous subungual debris, with pain on palpation,TA, T1, T2, T3, T4, T5, T6, T7, T8, T9.?Dermatologic: ?SKIN FINDINGS:?Skin exam reveals Keratotic lesion(s) located at ,Medial plantar,B/L, Skin shows sign(s) of, dryness, scaling, in a stocking fashion, no fissure(s) present, B/L.?Orthopedic: ?MUSCLE STRENGTH:?, Generalized decrease in strength, Right, Drop foot, Right, 5/5 all groups in a symmetrical fashion, Left.?GAIT ABNORMALITY:?antalgic, unstable/unsteady relating occasional difficulty with balance, walker-assisted,?.?DIGITAL DEFORMITIES:?, Digital contracture, PIPJ, 2-5 B/L, incompl- reducible with WB, or to push-up test, no over, nor underlapping black necrotic blood blister 5th PIPJ right?.?FOOTWEAR:? shoe gear properties exacerbate patients foot/toe deformity.?Neurological: ?SENSORY:?Neurological exam demonstrates reduced sharp/dull pin prick discrimination reduced light touch sensation reduced vibration sensation reduced proprioception sensation in a stocking fashion 5.07 monofilament test performed at plantar aspects of 5 varied sites per foot shows sensation plantar aspects absent at Forefoot B/L.? Assessment: * Assessment: 1.?Other hammer toe(s) (acqu ired), right foot - M20.41 (Primary)???Specify :Chronic problem, Worse (4)???2.?Atherosclerosis of [place] artery of both lower extremities, with unspecified presence of clinical manifestation - I70.203???Notes :Q7(A), Q8(2B), Q9(1B,2C)???3.?Tinea unguium - B35.1???4.?Pain in right toe(s) - M79.674???5.?Pain in left toe(s) - M79.675???6.?Arthritis of joint of lesser toe, right - M19.071???7.?Subluxation of metatarsophalangeal joint of toe, initial encounter - S93.149A???8.?Xerosis of skin - L85.3???Specify :Acute problem, Uncomplicated (3),Rx Management (4)???9.?Peripheral polyneuropathy - G62.9???Specify :Chronic problem, Worse (4)???10.?Right foot drop - M21.371???Specify :Chronic problem, Stable (1=3,2=4)???11.?Blood blister - T14.8XXA??? o Plan: * Treatment: 2.?Tinea unguium?Procedure: 71568-GECZPEZ NAIL, 6 OR MORE 3.?Xerosis of skin? Start Ammonium Lactate Cream, 12 %, 1 application, Externally to affected areas of dry skin to feet except for between the toes, Twice a day, 30 days, 280, Refills 3.?? * Procedures:?Debride Nail 6-10:?Nail debridement?Due to the clinical pathology outlined in the exam findings, performance of this nail treatment is medically necessary as its management by an unskilled/untrained nonprofessional would put this patients foot and overall health at risk. Therefore, debridement to affected nail(s), as described in exam (TA, T1, T2, T3, T4, T5, T6, T7, T8, T9,), was performed exclusively by the physician of record to reduce/remove overall nail length, girth, thickness, subungual debris, and necrotic tissue, by manual and/or electrical means through the use of a nail nipper and/or dremel-type fiberglass grinder, to a more viable healthy nail plate or bed tissue 6- 10 nails in total. Silver nitrate was used for any petechial bleeding as necessary. Definitive antifungal treatment options, both pharmaceutical and surgical, have been reviewed and discussed with the patient. The patient solely prefers the use of intermittent/as needed professional debridement services for their nail condition and understands the need for additional periodic treatments to maintain effectiveness in symptomatic relief - 29874.?Keratoma Treatment:?Parring or Cutting of Benign Hyperkeratotic Lesion(s)?, (-56) 2-4 Lesions - Due to the at risk nature of the patients medical condition as documented in the exam findings, performance of this keratoderma treatment is medically necessary as its management by an unskilled/untrained nonprofessional would put this patients foot and overall health at risk. Therefore, the benign hyperkeratotic lesions, ( 2 ) in total, locations as stated and described in the exam ( ,Medial plantar,B/L,), were pared, and/or cut utilizing a sterile 15 blade, tissue nippers, and/or power dremel instrumentation by the physician of record - 53829.? * Procedure Codes:?03319 DEBRI DE NAIL, 6 OR MORE, Modifiers: XS 87677 TRIM SKIN LESIONS, 2 TO 4, Modifiers: Q8 , XS * Preventive Medicine:? ??Counseling:?Discussion:?-04: Office or other outpatient visit for the evaluation and management of a new patient, which required a medically appropriate history and/or examination and MODERATE level of DECISION MAKING for: 1 OR MORE CHRONIC PROBLEM(S) THATS WORSENING, 2 STABLE CHRONIC PROBLEMS, A NEWLY DIAGNOSED PROBLEM WITH UNCERTAIN PROGNOSIS, AN ACUTE COMPLICATED INJURY WITH MULTIPLE TREATMENT OPTIONS, OR AN ACUTE PROBLEM WITH ACCOMPANYING SYSTEMIC SYMPTOMS, THAT POSE(S) A MODERATE RISK OF MORBIDITY. THIS CONDITION MAY ALSO INCLUDE RX DRUG MANAGEMENT, OR A DECISON FOR MINOR SURGERY. The visit on the day of the encounter encompassed interpreting the data and educating the patient as to the nature of their condition, treatment options available according to their individual PMH, meds, allergies, and overall health/living conditions, as well as any potential risks or complications that may occur from a failure to adhere to, and participate in, the recommended course of therapy. The discussion included a complete verbal, and/or written explanation of the examination results, any x-rays taken, the proposed diagnosis, and outline of the treatment plan. A schedule for future care needs was also explained. The patient verbalized an understanding of the instructions at this time and agreed to be an active participant in their treatment. If the patient should think of any questions or concerns after the visit, I have encouraged the patient to call the office.?Digital Surgery:?We elected to try conservative treatment at the present time, due to the patients age, medical history, and circulatory constraints.?Digital Treatment:?HT- I explained to the patient the possible etiologies of Hammertoes, including genetics/foot type/shoegear/activity level/exercise routine and the risks/benefits of all the different treatment options for their pain including: No treatment at all, Rest, Ice, New/supportive/wider/deeper Shoe gear, Digital Padding/Strapping/Taping/Bracing/Gel protective sleeves, Foot/Ankle AFO Bracing, Stretching exercises, Deep Tissue Massage, Arch support/shoe inserts with splay metatarsal padding, and Custom orthoses. I insisted that any digital devices be removed daily and not worn overnight for safety. The patient is to carefully examine the toes daily for any skin irritation while using any splinting or padding device. The advantages and disadvantages of each option were discussed and the patients questions re: shoe gear, padding, custom vs prefabricated inserts, activity level, and consistency in home treatment regimens for optimal success were answered to their verbally confirmed satisfaction, Recomm, rest, ice, proper shoegear, padding, orthotics, anti-inflammatories or tylenol as tolerated, topical analgesics, cortisone injections.?Neuritis/Neuropathy:?The patient was counseled on the diagnosis, possible etiologies (including mechanical stress, injury, entrapment, chemotherapy, diabetes, vertebral disk herniation if hx), treatment options, and importance for adherence to recommendations in order to address the patients Neuritis/Neuropathy. The advantages and disadvantages re: Accomidative mechanical support/offloading, Topical vs PO analgesics including aspercream/Voltaren gel/Lidoderm patches/Neurontin/Lyrica along with their potential side effects were discussed with the patient to their satisfaction. Also discussed the use of therapeutic injectable cortisone if needed. Surgical treatment, if considered an option, was discussed as well. If surgery is warranted, we discussed the potential successful outcomes as well as the possible complications such as failure, painful scar, permanent tingling/numbness/neuralgea/or intractable pain. Patient questions re: medication use, dosage, and possible side effects and drug interactions were reviewed and the answers to each understood. If the condition worsens, the patient was instructed to contact the office for an appointment. The patient verbally confirmed a full understanding of the above.?Shoe Gear Counseling:?The patient and I reviewed the types of shoes they should be wearing. My recommendation included obtaining a well-fitted shoe with a good supportive, non-foldable nor twistable sole, plenty of toe/room for the forefoot, and proper arch support. Based on todays examination, I recommended the patient look for new shoes, by having their feet professionally measured. We discussed that generally the best time of the day for a shoe fitting is the afternoon. Different shoes types and brands to best match the patients occupation and vocation were discussed. Specific brand selection will be up to the patient, their individual foot condition/deformities, and fit. The patient and I reviewed the standard new shoe break in period by wearing them for a few hours a day while checking for redness or sores as wear time is increased. The patient verbally confirmed to understanding the information discussed.?Xerosis:?The patient was counseled on the diagnosis, potential etiologies, and treatment options for their skin condition. We discussed the risks and benefits of each option from performing no treatment, to utilizing OTC topical skin creams/ointments, to utilizing prescription topical creams/ointments, to utilizing customized compounded topical medications and use of nocturnal occlusion with any/all previously detailed therapies. We discussed the advantages and disadvantages of each possible treatment and importance for adherence to all the recommended therapies for optimum success and avoid potential complications such as open sore/infection/possible hospitalization. We discussed the potential effectiveness of each topical preparation as well as each ones possible side effects and/or patient medication interactions. Patient questions re: use, dosage, successful outcomes, and application consistency were reviewed and the patient verbalized that all answers were clearly understood. The patient has decided to apply Rx skin creams to their feet save the interspaces while paying special attention to the heels. Such was sent to their pharmacy at the time of visit.? ??Screening/Special Tests:?Fall Risk?Screening:?No falls in the past year ?FALLS: Screening for Future Fall Risk?Have you had any falls with injury in the past year??No * Follow Up:?prn * Images: * Sign off status: Completed true * Provider:?Stephy Mix DPM Date:?2024 Generated for Shy pineda/Javon/Prasanna on:?03/24/2025 12:41 PM EDT History and Physical Notes * HPI (History of Present Illness) Category Sub-Category Detail Notes Category Not es Toe pain Nature: tenderness, discoloration Location: Right foot Duration: , several weeks Course: worse Aggravated by: any pressure, shoes Treatments: rest/alter normal da francesca activity, change in shoes Skin problems Nature: dryness , scaling Location: B/L Duration: several days Course: worse At Risk footcare Pt States Last PCP Visit: Date: 4 Examination Category Sub-Category Detail Notes Category Not es Neurological SENSORY: Neurological exa m demonstrates reduced sharp/dull pin prick discrimination reduced light touch sensation reduced vibration sensation reduced proprioception sensation in a stocking fashion 5.07 monofilament test performed at plantar aspects of 5 varied sites per foot shows sensation plantar aspects absent at Forefoot B/L Dermatologic SKIN FINDINGS: Skin exam reveal s Keratotic lesion(s) located at ,Medial plantar,B/L, Skin shows sign(s) of, dryness, scaling, in a stocking fashion, no fissure(s) present, B/L Orthopedic GAIT ABNORMALITY: antalgic, unst able/unsteady relating occasional difficulty with balance, walker-assisted, FOOTWEAR EVALUATION: shoe gear propertie s exacerbate patients foot/toe deformity DIGITAL DEFORMITIES: , Digital contractu re, PIPJ, 2-5 B/L, incompl-reducible with WB, or to push-up test, no over, nor underlapping black necrotic blood blister 5th PIPJ right MUSCLE STRENGTH: , Generalized decrea se in strength, Right, Drop foot, Right, 5/5 all groups in a symmetrical fashion, Left General Examination GENERAL APPEARANCE: Reveals a pleasant, alert, well nourished, well-developed, well hydrated individual, who demonstrates proper attention to hygiene/body habitus, and is in no acute distress, Pt serves as own historian for office visit today FOOT EXAM: Lower Extremity Neurological Exa m performed:: Yes Visual exam of foot performed:: Yes Date: 01/09/2025 Sensory testing performed:: sensations d iminished Sensory and motor testing performed:: se nsations diminished Pedal pulse taking performed:: absent ORIENTED: person, place, and t mercedes Footwear Evaluation Footwear Evaluation performe d:: Yes Vascular DP PULSES (B): 0/4, B/L PT PULSES (B): 0/4, B/L CAPILLARY FILL TIME: delayed, all digits , B/L TEMPERTURE GRADIENT (C): decreased, cool to cool, proximal to distal, B/L TROPHIC CONDITION-TEXTURE/ELASTICITY/TURGOR/HAIR GROWTH (B): decreased, fragile, thin, shiny skin, wi th sparse to absent hair growth, B/L EDEMA (C): , 4/4, non-pitting, Leg(s), Foot, B/L CLAUDICATION (C): denies, B/L REST PAIN: denies, B/L PIGMENTATION: cyanotic PARESTHESIA (C): absent, B/L BURNING (C): absent, B/L Nails NAILS are: Elongated, overg rown, dystrophic, lytic, greater than 3mm thick, discolored and friable with crumbly malodorous subungual debris, with pain on palpation,TA, T1, T2, T3, T4, T5, T6, T7, T8, T9
--- OUTSIDE RECORDS SUMMARY | 2025-03-24 12:41 | XMS_ITS | Patient Health Record ---
Author Organization [facility] Address [address] [facility] [place] [address] Care Team Providers Care Wind Turbine Installer Name Role Phone Yuri Rowe Primary Care Provider Unavailserjio Stephy Robertson Unavailable [phone] Allergies Allergen (clinical drug ingredient) Drug/Non Drug Allergy documented on EMR Reaction Allergy Type Onset Date Status Penicillin Unknown Drug Allergy Active Reason For Referral No Information Medications Medication SIG (Take, Route, Frequency, Duration) Notes Start Date End Date Status Olmesartan Medoxomil 20 MG 1 tablet Oral ly Once a day Active Ammonium Lactate 12 % 1 application Exte rnally to affected areas of dry skin to feet except for between the toes Twice a day for 30 days Active Fexofenadine HCl 180 MG 1 tablet Swallow whole with water; do not take with fruit juices. Orally Once a day Active Amlodipine & Diet Manage Prod Active Aspirin Adult Low Dose Active Vitamin D 50 MCG (2000 UT) 1 tablet Oral ly Once a day Active Voltaren 1 % as directed Externally Active Ibuprofen 600 MG 1 tablet with [...] Problem Status W/U Status Risk Notes Problem Acquired hammer toe of right foot (5182574038964265) Other hammer toe(s) (acquired), right foot (M20.41) Active confirmed Problem Atherosclerosis of lummi arteries of the extremities (196447490578740) Atherosclerosis of lummi artery of both lower extremities, with unspecified presence of clinical manifestation (I70.203) Active confirmed Q7(A), Q8(2B), Q9(1B,2 C) Problem Localized, primary osteoarthritis of the ankle and/or foot (517014734) Arthritis of joint of lesser toe, right (M19.071) Active confirmed Problem Neuropathy (378106033) Peripheral polyneuropathy (G62.9) Active confirmed Vital Signs Heart Rate 78 /min 01/09/2025 Blood pressure diastolic 77 mm Hg 01/09/2025 Height 5ft 11 in in 01/09/2025 Blood pressure systolic 132 mm Hg 01/09/2025 Weight 360 lbs 01/09/2025 BMI 50.2 kg/m2 01/09/2025 Procedures Procedure Date Ordered Date Performed Result Body Sit e 98680-JKPMLSG NAIL, 6 OR MORE 01/09/2025 N/A 48549-WDRW SKIN LESIONS, 2 TO 4 01/09/2025 N/A Encounters Encounter Location Date Provider Diagnosis [facility] [address] [address] 01/09/2025 Stephy Black Atherosclerosis of n ative [...] Notes Treatment Clinical Notes Section Notes 01/09/2025 Other hammer toe(s) (acquired), right foot (ICD-10 - M20.41) o 01/09/2025 Atherosclerosis of lummi artery of both lower extremities, with unspecified presence of clinical manifestation (ICD-10 - I70.203) Q7(A), Q8(2B), Q9(1B,2C) o 01/09/2025 Tinea unguium (ICD-1 0 - [...] 0 - T14.8XXA) o Plan Of Treatment Pending Test Test Name Order Date [id number] NAIL, 6 OR MORE 01/09/2025 88918-CJWY SKIN LESIONS, 2 TO 4 01/10/20 25 Next Appt Details Provider Name:Stephysanchez Mix , 04/14/2025 10:15:00 AM, [address] [facility], [place], [address], Insurance Providers Payer Name Payer Address Payer Phone Subscriber Number Group Number Insured Name Patient Relationship to Insured Coverage Start Date Coverage End Date [facility] CCA SCO Claims [address] [place] [id number] [phone] [id number] Carroll Swain Self - patient is the insured Medical (General) History Medical History History ICD Code CAD (Cholesterol) Cataracts Gall bladder problems High Blood Pressure Numbness Poor circulation Joint implants/screws Gallstones Surgical History Surgery Date(Month/Year) hip replacement catarcts
== END 2025-03-24 11:58 | disposition home or self-care (01) ==
LOC: HO.HGI 11:23
PROVIDERS: PCP Internal Medicine; Visit Provider Nurse Practitioner Family
DX: Z12.11 Encounter for screening for malignant neoplasm of colon (principal); Z01.818 Encounter for other preprocedural examination; Z86.0101 Personal history of adenomatous and serrated colon polyps; Z80.0 Family history of malignant neoplasm of digestive organs; K76.0 Fatty (change of) liver, not elsewhere classified; K80.20 Calculus of gallbladder without cholecystitis without obstruction
CPT/HCPCS: 99203

== ENCOUNTER → 2025-03-24 11:23 | Outpatient (BNVA) | payer OTHER, SELFPAY | PROVIDERS: PCP Internal Medicine; Visit Provider Nurse Practitioner Family | DX: Z12.11 Encounter for screening for malignant neoplasm of colon (principal); K76.0 Fatty (change of) liver, not elsewhere classified; K80.20 Calculus of gallbladder without cholecystitis without obstruction; D12.6 Benign neoplasm of colon, unspecified; Z80.0 Family history of malignant neoplasm of digestive organs | CPT/HCPCS: 99202 ==

== ENCOUNTER 2025-04-06 10:33 | Outpatient (REF) | payer OTHER, SELFPAY ==
[2025-04-06 10:51] LABS: MANUAL DIFF FLAG NO
[2025-04-06 11:05] LABS: Hematocrit 42.8 % (42.0-52.0); Hemoglobin 15.3 g/dl (14.0-18.0); Mean Corpuscular HGB Conc 35.7 g/dl (31.0-36.0); Mean Corpuscular Hemoglobin 32.5 pg (27.0-33.0); Mean Corpuscular Volume 90.9 fL (80.0-98.0); Mean Platelet Volume 8.9 fL (9.4-12.4); Platelet Count 142 X10*3/uL (160-400); Red Blood Count 4.71 X10*6/uL (4.60-5.80); Red Cell Distribution Width 13.2 % (11.0-16.0); White Blood Count 5.1 X10*3/uL (4.8-10.8)
[2025-04-06 11:08] LABS: Basophils Absolute Auto 0.1 X10*3/uL (0.0-0.2); Basophils Percent Auto 1.2 % (0-2); Eosinophils Absolute Auto 0.2 X10*3/uL (0.0-0.4); Eosinophils Percent Auto 4.3 % (0-4); Hematocrit 42.6 % (42.0-52.0); Hemoglobin 15.3 g/dl (14.0-18.0); Imm Gran Abs Auto 0.03 X10*3/uL (0.00-0.03); Imm Gran Pct Auto 0.6 % (0.0-0.4); Lymphocytes Absolute Auto 1.1 X10*3/uL (1.2-4.9); Lymphocytes Percent Auto 21.4 % (20-40); Mean Corpuscular HGB Conc 35.9 g/dl (31.0-36.0); Mean Corpuscular Hemoglobin 32.8 pg (27.0-33.0); Mean Corpuscular Volume 91.2 fL (80.0-98.0); Mean Platelet Volume 9.3 fL (9.4-12.4); Monocytes Absolute Auto 0.4 X10*3/uL (0.1-1.2); Monocytes Percent Auto 7.5 % (2-11); Neutrophils Absolute Auto 3.3 x10*3/uL (2.0-8.3); Platelet Count 151 X10*3/uL (160-400); Red Blood Count 4.67 X10*6/uL (4.60-5.80); Red Cell Distribution Width 13.2 % (11.0-16.0); White Blood Count 5.1 X10*3/uL (4.8-10.8)
[2025-04-06 11:30] LABS: Estimated Average Glucose 74 mg/dL; Hemoglobin A1c % 4.2 % (<6.0)
--- OUTSIDE RECORDS SUMMARY | 2025-04-06 11:38 | XMS_ITS | Patient Health Record ---
Author Organization [facility] Address [address] [facility] [place] [address] Care Team Providers Care Cleaning Technician Name Role Phone Yuri Rowe Primary Care Provider Unavailserjio bradford Stephy Mix Unavailable [phone] Allergies Allergen (clinical drug ingredient) Drug/Non Drug [...] Problem Acquired hammer toe of right foot (9371641291985206) Other hammer toe(s) (acquired), right foot (M20.41) Active confirmed Problem Atherosclerosis of saxman arteries of the extremities (124665909142346) Atherosclerosis of saxman artery of both lower extremities, with unspecified presence of clinical manifestation (I70.203) Active confirmed Q7(A), Q8(2B), Q9(1B,2 C) Problem Localized, primary osteoarthritis of the ankle and/or foot (729571018) Arthritis of joint of lesser toe, right (M19.071) Active confirmed Problem Neuropathy (940086783) Peripheral polyneuropathy (G62.9) Active confirmed Vital Signs Heart Rate 78 /min 01/09/2025 Blood pressure diastolic 77 mm Hg 01/09/2025 Height 5ft 11 in in 01/09/2025 Blood pressure systolic 132 mm Hg 01/09/2025 Weight 360 lbs 01/09/2025 BMI 50.2 kg/m2 01/09/2025 Procedures Procedure Date Ordered Date Performed Result Body Sit e 54237-XTXMZXR NAIL, 6 OR MORE 01/09/2025 N/A 98875-VBUZ SKIN LESIONS, 2 TO 4 01/09/2025 N/A Encounters Encounter Location Date Provider Diagnosis [facility] [address] [address] 01/09/2025 Stephy Black Atherosclerosis of n ative [...] (ICD-10 - M20.41) o 01/09/2025 Atherosclerosis of saxman artery of both lower extremities, with unspecified [...] Treatment Pending Test Test Name Order Date 25769-SBYHLAI NAIL, 6 OR MORE 01/09/2025 49893-USNH SKIN LESIONS, 2 TO 4 01/10/20 25 Next Appt Details Provider Name:Stehpysanchez Mix , 04/14/2025 10:15:00 AM, [address] [facility], [place], [address], Insurance Providers Payer Name Payer Address Payer Phone Subscriber Number Group Number Insured Name Patient Relationship to Insured Coverage Start Date Coverage End Date [facility] CCA SCO Claims [address] [place] [phone] [id number] Carroll Swain Self - patient is the insured Medical (General) History Medical History History ICD Code CAD (Cholesterol) Cataracts Gall bladder problems High Blood Pressure Numbness Poor circulation Joint implants/screws Gallstones Surgical History Surgery Date(Month/Year) hip replacement catarcts
[2025-04-06 12:11] LABS: Alanine Aminotransferase 58 U/L (0-40); Albumin Level 4.4 g/dL (3.5-5.0); Alkaline Phosphatase 44 U/L (39-117); Anion Gap 13 (12-20); Aspartate Amino Transferase 42 U/L (5-37); Bilirubin Total 1.2 mg/dL (0.0-1.0); Blood Urea Nitrogen 10 mg/dL (9-16); Calcium 9.4 mg/dL (8.4-10.2); Carbon Dioxide 25 mmol/L (22-29); Chloride 103 mmol/L (96-108); Cholesterol 145 mg/dL (<200); Estimated Glomerular Filt Rate > 60; Free T4 (Free Thyroxine) 1.03 ng/dL (0.71-1.85); Glucose Random 103 mg/dL (60-115); HDL Cholesterol 43 mg/dL (>40); LDL Cholesterol Calculated 82 mg/dL (<100); Potassium 4.6 mmol/L (3.3-5.1); Prostate Specific Antigen 6.48 ng/mL (<0.05-4.0); Sodium 136 mmol/L (135-145); Thyroid Stimulating Hormone 2.07 uIU/mL (0.32-4.0); Total Protein 6.8 g/dL (6.5-8.0); Triglycerides 103 mg/dL (<150)
[2025-04-06 12:37] LABS: Folate 14.1 ng/mL (> or = 4.0); Prostate Specific Antigen Scr 6.37 ng/mL (<0.05-4.0); Vitamin B12 751 pg/mL (200-900)
[2025-04-10 13:43] LABS: Testosterone, Free 125.4 pg/mL (35.0-155.0); Testosterone, Total 825 ng/dL (250-1100)
[2025-04-10 15:54] LABS: Testosterone, Total 646 ng/dL (250-1100)
== END 2025-04-06 10:34 | disposition home or self-care (01) ==
LOC: HO.LAB 10:33
PROVIDERS: Absent Provider Urology; PCP Internal Medicine; Visit Provider Internal Medicine
DX: E29.1 Testicular hypofunction (principal); R73.01 Impaired fasting glucose; Z12.5 Encounter for screening for malignant neoplasm of prostate; Z13.6 Encounter for screening for cardiovascular disorders
CPT/HCPCS: 36415; 80053; 80061; 82607; 82746; 83036; 84153; 84402; 84403; 84439; 84443; 84550; 85025; 85027

== ENCOUNTER 2025-04-10 11:15 | Outpatient (AMB) | payer OTHER, SELFPAY ==
--- NOTE | 2025-04-10 11:15 | A.OFFVIS_ITS ---
Intake Visit Reasons: 6m/labs Intake Note: Patient is Presents today for a 6M follow-up/LABS Urology Med: Testosterone Antibiotic Allergy: Penicillin, Blood Thinner: Aspirin Human Resources Records Clerk Required: No Accompanied by: Self / Same As Patient Allergies Penicillins Allergy (Mild, Verified 04/10/25 11:16) UNKNOWN bupropion [From WELLBUTRIN] Allergy (Unknown, Verified 04/10/25 11:16) UNKNOWN lisinopril [LISINOPRIL] Allergy (Unknown, Verified 04/10/25 11:16) FAINTING HPI Comments Details: Carroll is a very pleasant male. He is a patient of Dr. Rowe. He is seen for the following urologic conditions - hypogonadism Telemedicine Evaluation 15 min Consultation DoximDecaWave Monique Video Hypogonadism follow-up PSA jumped T pending Three-month follow-up PSA Great response to sleep apnea machine with significant improvement in energy Hypogonadism: He presents today for further evaluation and followup of his hypogonadism - stable numbers - use 2 pumps every day Initial symptoms include erectile dysfunction Yes decreased libido Yes change in mood/depression Yes in muscle size/strength Yes increased fatigue/malaise Yes The onset of symptoms has been gradual Associate conditions include chronic pain with opioid use Yes obstructive sleep apnea No CAD No obesity No stress - financial, family, employment No heavy alcohol or illicit drug use No Laboratory results 12/23 , baseline, testosterone 250, low LH amd FSH 04/22 , testosterone 757, 05/23 T 405, PSA 2.5, 12/25 T 894 PSA 2.5, 12/26 T 717, PSA 2.32, 06/25 T pend, PSA 2.5, Hct 36.9, 01/24 T 482 P 2.7 H 41, 07/27 853 2.2 40, 01/25 T 450 2.8 42, 09/27 595 3.2 42, 03/28 T 442 3.2 41, 09/28 624 42 3.6, 04/29 Current therapy includes gel/cream exogenous testosterone PFSH Medical History Family history of colon cancer Obesity, morbid Right foot drop Left shoulder pain Right leg DVT Obesity Hypercholesterolemia Allergic rhinitis Knee osteoarthritis Hypogonadism BPH (benign prostatic hyperplasia) Obstructive sleep apnea Anemia Peripheral vascular disease Hypertension Surgical History Hx of tonsillectomy History of cataract surgery History of total left hip arthroplasty Family History Father Acute CVA (cerebrovascular accident) Diabetes Hypertension Stroke Mother Colon cancer Diabetes Hypertension Heart attack Brother No problems noted. Sister Depression Other Cancer Social History Housing: Apartment Alcohol intake: current Alcohol intake frequency: a few times a week Alcohol type: beer Comment: QD 3 drinks Patient Tobacco Use Status: Former Tobacco user Tobacco use type: Cigarette Years Smoked: stopped 2018 e-Cigarette/Vaping Use: Never Used Second Hand Smoke Exposure: No service: No Current occupational status: disabled Cognitive needs: Yes (walker ) Hearing needs: No Vision needs: Yes (glasses) Review of Systems Const All systems reviewed & are unremarkable except as noted in HPI and below Reports no additional complaints Resp Reports no additional complaints GI Reports no additional complaints Reports as per HPI Musc Reports no additional complaints Physical Exam Telemedicine evaluation Appropriate responses Regular breathing rate and rhythm HEENT Head: Yes normal to inspection Ears: hearing grossly normal bilaterally Eyes General: appearance normal, both eyes and all related structures Neck Neck: Yes normal visual inspection Chest Chest palpation & inspection: normal inspection of the chest Resp Effort & Inspection: normal respiratory effort and able to speak in complete sentences Telehealth Telehealth Telehealth Platform: [employer] Location of provider rendering services: practice address Location of patient: address on file Patient Identification confirmed using: Name, : Yes Telehealth method: video Patient verbally consented to treatment: Yes Patient verbally consented to billing insurance company: Yes Patient informed of any privacy concerns related to visit: Yes Minutes spent on Phone/Video with Pt.: 15 Assessment & Plan Assessment & Plan (1) PSA elevation: Code(s): R97.20 - Elevated prostate specific antigen [PSA] Category: Medical (2) Hypogonadism in male: Code(s): E29.1 - Testicular hypofunction Category: Medical Plan Three-month follow-up PSA tele Orders: Orders PSA,Total (Free>4and<10) 3 Months R97.20 - Elevated prostate specific antigen [PSA] Medications: Refilled testosterone apply 2 pumps total daily over max area of upper arm and shoulder Alternate arms 2 pumps topical DAILY 28 days 75 grams 5RF E29.1 - Testicular hypofunction Patient Instructions: This note is constructed using voice recognition software. While every effort has been made to ensure accuracy color shop helper errors may have been included. Imaging studies, laboratory and physical exam results were discussed and reviewed in detail. No major barriers to patient understanding were identified. An opportunity to ask questions regarding the treatment plan was provided. All questions were answered. The patient expressed understanding and agreement with the above treatment plan. The patient is aware they should contact our office by phone for worsening of their current condition or the appearance of new urologic symptoms. Compliance is encouraged with any medications and followup testing that is ordered. It is a privilege to participate in the urologic care of your patient. If you have any questions or concerns regarding treatment for the above conditions, or other urologic issues, please do not hesitate to contact me. The office telephone contact is [phone]. Sincerely, Dr Rikki Gunn MD, [facility] - Urology Compassionate Specialist Care for the Genitourinary System Coding Level of Care Code Tele Est Pt Level 3 (74389) Complex EM visit Add On G2211 Diagnoses PSA elevation R97.20 Hypogonadism in male E29.1
--- OUTSIDE RECORDS SUMMARY | 2025-04-10 12:05 | XMS_ITS | Patient Health Record ---
Author Organization [facility] Address [address] [facility] [place] [address] Care Team Providers Care Hand Paint Mixer Name Role Phone Yuri Rowe Primary Care Provider Unavailserjio Stephy Robertson Unavailable [phone] Allergies Allergen (clinical drug ingredient) Drug/Non Drug [...] Problem Acquired hammer toe of right foot (4603823414700157) Other hammer toe(s) (acquired), right foot (M20.41) Active confirmed Problem Atherosclerosis of tejon arteries of the extremities (382454303597214) Atherosclerosis of tejon artery of both lower extremities, with unspecified presence of clinical manifestation (I70.203) Active confirmed Q7(A), Q8(2B), Q9(1B,2 C) Problem Localized, primary osteoarthritis of the ankle and/or foot (403333162) Arthritis of joint of lesser toe, right (M19.071) Active confirmed Problem Neuropathy (436161358) Peripheral polyneuropathy (G62.9) Active confirmed Vital Signs Heart Rate 78 /min 01/09/2025 Blood pressure diastolic 77 mm Hg 01/09/2025 Height 5ft 11 in in 01/09/2025 Blood pressure systolic 132 mm Hg 01/09/2025 Weight 360 lbs 01/09/2025 BMI 50.2 kg/m2 01/09/2025 Procedures Procedure Date Ordered Date Performed Result Body Sit e 45706-QGSR SKIN LESIONS, 2 TO 4 01/09/2025 N/A 82988-HUCNLFP NAIL, 6 OR MORE 01/09/2025 N/A Encounters Encounter Location Date Provider Diagnosis [facility] [address] [address] 01/09/2025 Stephy Black Atherosclerosis of n ative [...] (ICD-10 - M20.41) o 01/09/2025 Atherosclerosis of tejon artery of both lower extremities, with unspecified [...] Treatment Pending Test Test Name Order Date [id number]-FHUXRJQ NAIL, 6 OR MORE 01/09/2025 68020-ZXBJ SKIN LESIONS, 2 TO 4 01/10/20 25 Next Appt Details Provider Name:Stephysanchez Mix , 04/14/2025 10:15:00 AM, [address] [facility], [place], [address], Insurance Providers Payer Name Payer Address Payer Phone Subscriber Number Group Number Insured Name Patient Relationship to Insured Coverage Start Date Coverage End Date [facility] [employer] Claims [address] [place] [phone] [id number] Carroll Swain Self - patient is the insured Medical (General) History Medical History History ICD Code CAD (Cholesterol) Cataracts Gall bladder problems High Blood Pressure Numbness Poor circulation Joint implants/screws Gallstones Surgical History Surgery Date(Month/Year) hip replacement catarcts
== END 2025-04-10 12:18 | disposition home or self-care (01) ==
LOC: HO.HUSH 11:15
PROVIDERS: PCP Internal Medicine; Visit Provider Urology
DX: R97.20 Elevated prostate specific antigen [PSA] (principal); E29.1 Testicular hypofunction
CPT/HCPCS: 99213; G2211

== ENCOUNTER → 2025-04-10 11:15 | Outpatient (BNVA) | payer OTHER, SELFPAY | PROVIDERS: PCP Internal Medicine; Visit Provider Urology ==

== ENCOUNTER 2025-06-26 11:40 | Outpatient (REF) | payer OTHER, SELFPAY ==
--- OUTSIDE RECORDS SUMMARY | 2025-06-26 11:45 | XMS_ITS | Patient Health Record ---
Author Organization [facility] Address [address] [facility] [place] [address] Care Team Providers Care Prospect Manager Name Role Phone Yuri Rowe Primary Care Provider Unavailserjio e Stephy Mix Unavailable [phone] Allergies Allergen (clinical drug ingredient) Drug/Non Drug Allergy documented on EMR Reaction Allergy Type Onset Date Status Penicillin Unknown Drug Allergy Active Reason For Referral No Information Medications Medication SIG (Take, Route, Frequency, Duration) Notes Start Date End Date Status Ammonium Lactate 12 % 1 application Exte rnally to affected areas of dry skin to feet except for between the toes Twice a day; Duration: 90 days Active Aspirin Adult Low Dose Active Vitamin D 50 MCG (1999) 1 tablet Orally Once a day Active Amlodipine & Diet Manage Prod Active Metoprolol Succinate 100 MG 1 capsule Orally Once a day Active Olmesartan Medoxomil 20 MG 1 tablet Orally Once a day Active Voltaren 1 % as directed Externally Active Ibuprofen 600 MG 1 tablet with food o r milk as needed Orally Three times a day Active Fexofenadine HCl 180 MG 1 tablet Swallow whole with water; do not take with fruit juices. Orally Once a day Active Wegovy 0.25 MG/0.5ML 0.5 mL Subcutaneous Active Immunizations Vaccine Route Administration Date Status Comme nts Influenza Unknown 08/27/2024 Administered Social History Tobacco Use: Social History Observation Description Date Details (start date - stop date) Never Smoker NA - NA Tobacco use other than smoking: Question Answer Notes Are you an other tobacco user? No Tobacco Control (Standard) Question Answer Notes Tobacco [...] Problem Acquired hammer toe of right foot (6366859149875641) Other hammer toe(s) (acquired), right foot (M20.41) Active confirmed Problem Bilateral atherosclerosis of arteries of lower limbs (disorder) (00396372618876625 ) Atherosclerosis of seldovia artery of both lower extremities, with unspecified presence of clinical manifestation (I70.203) Active confirmed Q7(A), Q8(2B), Q9(1B,2 C) Problem Localized, primary osteoarthritis of the ankle and/or foot (991888420) Arthritis of joint of lesser toe, right (M19.071) Active confirmed Problem Inflammatory and toxic neuropathy (216910698) Peripheral polyneuropathy (G62.9) Active confirmed Vital Signs Heart Rate 78 /min 01/09/2025 Blood pressure diastolic 77 mm Hg 04/14/2025 Height 5ft 11in in 04/14/2025 Blood pressure systolic 132 mm Hg 04/14/2025 Weight 360 lbs 04/14/2025 BMI 50.2 kg/m2 04/14/2025 Procedures Procedure Date Ordered Date Performed Result Body Sit e 05635-EVSIYIK NAIL, 6 OR MORE 01/09/2025 N/A 03323-DCRY SKIN LESIONS, 2 TO 4 01/09/2025 N/A 80479-BSGGYPT NAIL, 6 OR MORE 04/14/2025 N/A 26959-OCGK SKIN LESIONS, 2 TO 4 04/14/2025 N/A Encounters Encounter Location Date [facility] [address] [place] [address] 01/09/2025 Stephy Black Atherosclerosis of n ative [...] foot drop M21.371 and Blood blister T14.8XXA [facility] [address] [address] 04/14/2025 Stephy Black Atherosclerosis of n ative artery of both lower extremities, with unspecified presence of clinical manifestation I70.203 ; Other hammer toe(s) (acquired), right foot M20.41 ; Tinea unguium B35.1 ; Pain in right toe(s) M79.674 ; Pain in left toe(s) M79.675 ; Xerosis of skin L85.3 and Peripheral polyneuropathy G62.9 Assessments Encounter Date Diagnosis (ICD Code) Assessment Notes Treatment Notes Treatment Clinical Notes Section Notes 01/09/2025 Other hammer toe(s) (acquired), right foot (ICD-10 - M20.41) o 01/09/2025 Atherosclerosis of seldovia artery of both lower extremities, with unspecified presence of clinical manifestation (ICD-10 - I70.203) Q7(A), Q8(2B), Q9(1B,2C) o 04/14/2025 Other hammer toe(s) (acquired), right foot (ICD-10 - M20.41) 04/14/2025 Atherosclerosis of seldovia artery of both lower extremities, with unspecified presence of clinical manifestation (ICD-10 - I70.203) Q7(A), Q8(2B), Q9(1B,2C) 04/14/2025 Tinea unguium (ICD-1 0 - B35.1) 01/09/2025 Tinea unguium (ICD-1 0 - B35.1) o 01/09/2025 Pain in right toe(s) (ICD-10 - M79.674) o 04/14/2025 Pain in right toe(s) (ICD-10 - M79.674) 01/09/2025 Pain in left toe(s) (ICD-10 - M79.675) o 04/14/2025 Pain in left toe(s) (ICD-10 - M79.675) 01/09/2025 Arthritis of joint o f lesser toe, right (ICD-10 - M19.071) o 04/14/2025 Xerosis of skin (ICD -10 - L85.3) 04/14/2025 Peripheral polyneuropathy (ICD-10 - G62.9) 01/09/2025 Subluxation of metatarsophalangeal joint of toe, initial encounter (ICD-10 - S93.149A) o 01/09/2025 Xerosis of skin (ICD -10 - L85.3) o 01/09/2025 Peripheral polyneuropathy (ICD-10 - G62.9) o 01/09/2025 Right foot drop (ICD -10 - M21.371) o 01/09/2025 Blood blister (ICD-1 0 - T14.8XXA) o Plan Of Treatment Pending Test Test Name Order Date [id number] NAIL, 6 OR MORE 01/09/2025 15274-LVNJRLA NAIL, 6 OR MORE 04/14/2025 82885-PHQF SKIN LESIONS, 2 TO 4 01/10/20 25 41751-OIRM SKIN LESIONS, 2 TO 4 04/14/20 25 Next Appt Details Provider Name:Stephy Mix , 07/17/2025 11:15:00 AM, [address] [facility], [place], [address], Insurance Providers Payer Name Payer Address Payer Phone Subscriber Number Group Number Insured Name Patient Relationship to Insured Coverage Start Date Coverage End Date [facility] [employer] SCO Claims [address] [place] [phone] [id number] Carroll Swain Self - patient is the insured Medical (General) History Medical History History ICD Code CAD (Cholesterol) Cataracts Gall bladder problems High Blood Pressure Numbness Poor circulation Joint implants/screws Gallstones Surgical History Surgery Date(Month/Year) hip replacement catarcts
[2025-06-26 17:00] LABS: PSA,Total (Free>4and<10) 6.40 ng/mL (0.00-4.00)
[2025-06-29 12:59] LABS: Free Prostate Spec Ag 0.8 ng/mL; Percent Free Prostate Spec Ag 13 % (calc) (>25)
== END 2025-06-26 11:41 | disposition home or self-care (01) ==
LOC: HO.CHCLDS 11:40
PROVIDERS: Visit Provider Urology
DX: R97.20 Elevated prostate specific antigen [PSA] (principal); Z12.5 Encounter for screening for malignant neoplasm of prostate
CPT/HCPCS: 36415; 84153; 84154

== ENCOUNTER 2025-07-10 10:08 | Outpatient (AMB) | payer OTHER, SELFPAY ==
--- NOTE | 2025-07-10 10:09 | A.OFFVIS_ITS ---
Intake Visit Reasons: 3m/PSA Intake Note: patient presents tday for: telehealth 3mo follow up urology medications: testosterone blood thinners: aspirin labs done 06/26/25: psa 6.40, fr-psa 0.8, %fr-psa 13, total psa 6.2 Inter Fold Roll Cutter Required: No Accompanied by: Self / Same As Patient Allergies Penicillins Allergy (Mild, Verified 07/10/25 10:13) UNKNOWN bupropion (From WELLBUTRIN) Allergy (Unknown, Verified 07/10/25 10:13) UNKNOWN lisinopril (LISINOPRIL) Allergy (Unknown, Verified 07/10/25 10:13) FAINTING HPI Comments Details: Carroll is a very pleasant male. He is a patient of Dr. Rowe. He is seen for the following urologic conditions - hypogonadism Telemedicine Evaluation 15 min Consultation [facility] Monique Video PSA remains elevated with free PSA 13% Will try to get prostate MRI Continues with significant weight loss on Wegovy Great response to sleep apnea machine with significant improvement in energy Hypogonadism: He presents today for further evaluation and followup of his hypogonadism - stable numbers - use 2 pumps every day Initial symptoms include erectile dysfunction Yes decreased libido Yes change in mood/depression Yes in muscle size/strength Yes increased fatigue/malaise Yes The onset of symptoms has been gradual Associate conditions include chronic pain with opioid use Yes obstructive sleep apnea No CAD No obesity No stress - financial, family, employment No heavy alcohol or illicit drug use No Laboratory results 12/23 , baseline, testosterone 250, low LH amd FSH 04/22 , testosterone 757, 05/23 T 405, PSA 2.5, 12/25 T 894 PSA 2.5, 12/26 T 717, PSA 2.32, 06/25 T pend, PSA 2.5, Hct 36.9, 01/24 T 482 P 2.7 H 41, 07/27 853 2.2 40, 01/25 T 450 2.8 42, 09/27 595 3.2 42, 03/28 T 442 3.2 41, 09/28 624 42 3.6, 04/29 6.2 T 646, 06/29 6.2 13% Current therapy includes gel/cream exogenous testosterone PFSH Medical History Family history of colon cancer Obesity, morbid Right foot drop Left shoulder pain Right leg DVT Obesity Hypercholesterolemia Allergic rhinitis Knee osteoarthritis Hypogonadism BPH (benign prostatic hyperplasia) Obstructive sleep apnea Anemia Peripheral vascular disease Hypertension Surgical History Hx of tonsillectomy History of cataract surgery History of total left hip arthroplasty Family History Father Acute CVA (cerebrovascular accident) Diabetes Hypertension Stroke Mother Colon cancer Diabetes Hypertension Heart attack Brother No problems noted. Sister Depression Other Cancer Social History Housing: Apartment Alcohol intake: current Alcohol intake frequency: a few times a week Alcohol type: beer Comment: QD 3 drinks Patient Tobacco Use Status: Former Tobacco user Tobacco use type: Cigarette Years Smoked: stopped 2018 e-Cigarette/Vaping Use: Never Used Second Hand Smoke Exposure: No service: No Current occupational status: disabled Cognitive needs: Yes (walker ) Hearing needs: No Vision needs: Yes (glasses) Review of Systems Const All systems reviewed & are unremarkable except as noted in HPI and below Reports no additional complaints Resp Reports no additional complaints GI Reports no additional complaints Reports as per HPI Musc Reports no additional complaints Physical Exam Telemedicine evaluation Appropriate responses Regular breathing rate and rhythm HEENT Head: Yes normal to inspection Ears: hearing grossly normal bilaterally Eyes General: appearance normal, both eyes and all related structures Neck Neck: Yes normal visual inspection Chest Chest palpation & inspection: normal inspection of the chest Resp Effort & Inspection: normal respiratory effort and able to speak in complete sentences Telehealth Telehealth Telehealth Platform: [facility] Location of provider rendering services: practice address Location of patient: address on file Patient Identification confirmed using: Name, : Yes Telehealth method: video Patient verbally consented to treatment: Yes Patient verbally consented to billing insurance company: Yes Patient informed of any privacy concerns related to visit: Yes Minutes spent on Phone/Video with Pt.: 15 Assessment & Plan Assessment & Plan (1) PSA elevation: Code(s): R97.20 - Elevated prostate specific antigen [PSA] Category: Medical (2) Hypogonadism in male: Code(s): E29.1 - Testicular hypofunction Category: Medical Plan Prostate MRI Diazepam given prior anxiety Orders: Orders MR Prostate wo/w con Today R97.20 - Elevated prostate specific antigen [PSA] Medications: New diazepam Take medication after arrival for imaging test 5 mg PO ONCE PRN 1 tab 0RF anxiety 1 day R45.89 - Other symptoms and signs involving emotional state, R97.20 - Elevated prostate specific antigen [PSA] Patient Instructions: This note is constructed using voice recognition software. While every effort has been made to ensure accuracy online merchandising coordinator errors may have been included. Imaging studies, laboratory and physical exam results were discussed and reviewed in detail. No major barriers to patient understanding were identified. An opportunity to ask questions regarding the treatment plan was provided. All questions were answered. The patient expressed understanding and agreement with the above treatment plan. The patient is aware they should contact our office by phone for worsening of their current condition or the appearance of new urologic symptoms. Compliance is encouraged with any medications and followup testing that is ordered. It is a privilege to participate in the urologic care of your patient. If you have any questions or concerns regarding treatment for the above conditions, or other urologic issues, please do not hesitate to contact me. The office telephone contact is [phone]. Sincerely, Dr Rikki Gunn MD, [facility] - Urology Compassionate Specialist Care for the Genitourinary System Coding Level of Care Code Tele Est Pt Level 3 (42250) Diagnoses PSA elevation R97.20 Hypogonadism in male E29.1
--- OUTSIDE RECORDS SUMMARY | 2025-07-10 11:03 | XMS_ITS | Patient Health Record ---
Author Organization [facility] Address [address] [place] [address] Care Team Providers Care Processes Chemical Design Engineer Name Role Phone Yuri Rowe Primary Care Provider Unavailserjio e Stephy Mix Unavailable [phone] Allergies Allergen (clinical drug ingredient) Drug/Non Drug [...] Problem Acquired hammer toe of right foot (1029654756643496) Other hammer toe(s) (acquired), right foot (M20.41) Active confirmed Problem Bilateral atherosclerosis of arteries of lower limbs (disorder) (30116271422966864 ) Atherosclerosis of [place] artery of both lower extremities, with unspecified presence of clinical manifestation (I70.203) Active confirmed Q7(A), Q8(2B), Q9(1B,2 C) Problem Localized, primary osteoarthritis of the ankle and/or foot (590525061) Arthritis of joint of lesser toe, right (M19.071) Active confirmed Problem Inflammatory and toxic neuropathy (032062636) Peripheral polyneuropathy (G62.9) Active confirmed Vital Signs Heart Rate 78 /min 01/09/2025 Blood pressure diastolic 77 mm Hg 04/14/2025 Height 5ft 11in in 04/14/2025 Blood pressure systolic 132 mm Hg 04/14/2025 Weight 360 lbs 04/14/2025 BMI 50.2 kg/m2 04/14/2025 Procedures Procedure Date Ordered Date Performed Result Body Sit e 20289-NMTZSYW NAIL, 6 OR MORE 01/09/2025 N/A 14318-OUTY SKIN LESIONS, 2 TO 4 01/09/2025 N/A 62707-CSRITTL NAIL, 6 OR MORE 04/14/2025 N/A 22895-EJKN SKIN LESIONS, 2 TO 4 04/14/2025 N/A Encounters Encounter Location Date Provider Diagnosis [facility] [address] [place] [address] 01/09/2025 Stephy Black Atherosclerosis of n ative [...] foot drop M21.371 and Blood blister T14.8XXA [facility] [address] [address] 04/14/2025 Stephy Black Atherosclerosis of n ative [...] (ICD-10 - M20.41) o 01/09/2025 Atherosclerosis of [place] artery of both lower extremities, with unspecified presence of clinical manifestation (ICD-10 - I70.203) Q7(A), Q8(2B), Q9(1B,2C) o 04/14/2025 Other hammer toe(s) (acquired), right foot (ICD-10 - M20.41) 04/14/2025 Atherosclerosis of [place] artery of both lower extremities, with unspecified [...] Treatment Pending Test Test Name Order Date [id number] NAIL, 6 OR MORE 01/09/2025 63797-ZLPRGBH NAIL, 6 OR MORE 04/14/2025 63675-LDZU SKIN LESIONS, 2 TO 4 01/10/20 25 73236-BVJV SKIN LESIONS, 2 TO 4 04/14/20 25 Next Appt Details Provider Name:Stephy Mix , 07/17/2025 11:15:00 AM, [address] [facility], [place], [address], Insurance Providers Payer Name Payer Address Payer Phone Subscriber Number Group Number Insured Name Patient Relationship to Insured Coverage Start Date Coverage End Date [facility] [employer] Claims [address] [place] [phone] [id number] Carroll Swain Self - patient is the insured Medical (General) History Medical History History ICD Code CAD (Cholesterol) Cataracts Gall bladder problems High Blood Pressure Numbness Poor circulation Joint implants/screws Gallstones Surgical History Surgery Date(Month/Year) hip replacement catarcts
== END 2025-07-10 14:43 | disposition home or self-care (01) ==
LOC: HO.HUSH 10:08
PROVIDERS: PCP Internal Medicine; Visit Provider Urology
DX: R97.20 Elevated prostate specific antigen [PSA] (principal); E29.1 Testicular hypofunction
CPT/HCPCS: 99213

== ENCOUNTER → 2025-07-10 10:08 | Outpatient (BNVA) | payer OTHER, SELFPAY | PROVIDERS: PCP Internal Medicine; Visit Provider Urology | DX: R97.20 Elevated prostate specific antigen [PSA] (principal); E29.1 Testicular hypofunction; Z79.82 Long term (current) use of aspirin; Z87.891 Personal history of nicotine dependence; Z13.89 Encounter for screening for other disorder ==

== ENCOUNTER 2025-07-24 11:22 | Outpatient (REF) | payer OTHER, SELFPAY ==
[2025-07-24 13:18] LABS: PSA,Total (Free>4and<10) 6.14 ng/mL (0.00-4.00)
[2025-07-27 12:24] LABS: Free Prostate Spec Ag 0.9 ng/mL; Percent Free Prostate Spec Ag 16 % (calc) (>25)
== END 2025-07-24 11:23 | disposition home or self-care (01) ==
LOC: HO.LAB 11:22
PROVIDERS: PCP Internal Medicine; Visit Provider Urology
DX: R97.20 Elevated prostate specific antigen [PSA] (principal); Z12.5 Encounter for screening for malignant neoplasm of prostate
CPT/HCPCS: 36415; 84153; 84154

== ENCOUNTER 2025-07-27 10:53 | Outpatient (AMB) | payer OTHER, SELFPAY ==
--- NOTE | 2025-07-27 11:14 | A.OFFPC_ITS ---
Vital Signs 07/27/25 11:19 Height 5 ft 10 in Weight 315 lb 4.176 oz BMI 45.2 BP 130/64 Blood Pressure Location Lt brachial Position Sitting Respiration 18 Pulse 75 Pulse Source Pulse Oximeter Temp 97 F Temp Source Temporal Artery Scan Pulse Oximetry (%) 98 Oxygen Delivery Method Room Air Intake Visit Reasons: cholesterol Network Control Supervisor Required: No Accompanied by: Self / Same As Patient Allergies Penicillins Allergy (Mild, Verified 07/27/25 11:20) UNKNOWN bupropion (From WELLBUTRIN) Allergy (Unknown, Verified 07/27/25 11:20) UNKNOWN lisinopril (LISINOPRIL) Allergy (Unknown, Verified 07/27/25 11:20) FAINTING Tobacco use date assessed: 07/27/25 Fall risk assessment: No Falls in past year Last assessed Fall Risk: 07/27/25 Dental Screening Dental Screen Date: 07/27/25 Did you have a dental visit in the last 12 months?: No Did you have a dental problem in the last 6 months where you did not have access to dental care?: No Was dental information given to patient?: Patient has dentist [facility] Medical History Family history of colon cancer Obesity, morbid Right foot drop Left shoulder pain Right leg DVT Obesity Hypercholesterolemia Allergic rhinitis Knee osteoarthritis Hypogonadism BPH (benign prostatic hyperplasia) Obstructive sleep apnea Anemia Peripheral vascular disease Hypertension Surgical History Hx of tonsillectomy History of cataract surgery History of total left hip arthroplasty Family History Father Acute CVA (cerebrovascular accident) Diabetes Hypertension Stroke Mother Colon cancer Diabetes Hypertension Heart attack Brother No problems noted. Sister Depression Other Cancer Social History Housing: Apartment Alcohol intake: current Alcohol intake frequency: a few times a week Alcohol type: beer Comment: QD 3 drinks Patient Tobacco Use Status: Former Tobacco user Tobacco use type: Cigarette Years Smoked: stopped 2018 e-Cigarette/Vaping Use: Never Used Second Hand Smoke Exposure: No service: No Current occupational status: disabled Cognitive needs: Yes (walker ) Hearing needs: No Vision needs: Yes (glasses) Questionnaire Thrive Questionnaire Date Thrive assessed: 01/15/25 I am a: Patient What is your living situation today?: I have a steady place to live Within the past 12 months, did the food you bought not last and you didn't have the money to get more?: Never true Within the past 12 months, did you worry whether your food would run out before you got money to buy more?: Never true Do you have trouble paying for medicines?: No Do you have trouble getting transportation to medical appointments?: Yes Do you have trouble paying your heating and electricity bill?: No Do you have trouble taking care of your child, family member or friend?: No Do you have trouble with day-to-day activities such as bathing, preparing meals, shopping, managing finances, etc.?: No Are you currently unemployed and looking for a job?: No Are you interested in more education?: No Please select the resources that you would like help with: None Currently or been in a relationship where the following occur: No concerns reported THRIVE Score: 1 SABINO-7 AMB Questionnaire SABINO-7 Date SABINO - 7 assessed: 01/22/25 Source: Developed by Drs. Lei Page, Mirna Reaves, Pradeep Max and colleagues, with an educational nicole from [employer]. Physical exam (Primary Care) Vital Signs: Last Vital Signs Temp 97 F 07/27/25 11:19 Pulse 75 07/27/25 11:19 Resp 18 07/27/25 11:19 BP 130/64 07/27/25 11:19 Pulse Ox 98 07/27/25 11:19 Oxygen Delivery Method Room Air 07/27/25 11:19 BMI result Body Mass Index 45.2 Tobacco/Smoking Status: Tobacco use Status Tobacco use date assessed 07/27/25 07/27/25 11:29 Patient Tobacco Use Status Former Tobacco user 07/27/25 11:14 Tobacco use type Cigarette 07/27/25 11:14 e-Cigarette/Vaping Use Never Used 07/27/25 11:14 Thrive Assessment: Date of Thrive Assessment Date Thrive assessed 01/15/25 07/27/25 11:14 Currently or been in a relationship where the following occur: No concerns reported Const General: alert; No acute distress Eyes Conjunctivae: conjunctivae normal Resp Auscultation: clear to auscultation bilaterally Cardio Rate: regular rate Rhythm: regular rhythm GI Inspection: Yes normal to inspection Extrem General: Yes normal to inspection and No edema Coding Level of Care Code Est Pt Level 4 (65872) Complex EM visit Add On G2211 Diagnoses Obstructive sleep apnea (adult) (pediatric) G47.33 Tubular adenoma of colon D12.6 Hepatic steatosis K76.0 Class 3 severe obesity due to excess calories with serious comorbidity and body mass index (BMI) of 50.0 to 59.9 in adult E66.01; Z68.43 Body mass index: BMI 50.0-59.9 Obesity classification: adult class 3 (BMI >= 40) Obesity type: due to excess calories Serious obesity comorbidity presence: with serious comorbidity Impaired fasting glucose R73.01 Hypercholesterolemia E78.00 Essential hypertension I10 Hypertension type: essential hypertension Peripheral vascular disease I73.9 Assessment & Plan Assessment & Plan (1) Obstructive sleep apnea (adult) (pediatric): Comment: CPAP Code(s): G47.33 - Obstructive sleep apnea (adult) (pediatric) Category: Medical Plan: Continue to use the CPAP more than 4 hours a night and benefits from this. (2) Tubular adenoma of colon: Comment: 2019 Code(s): D12.6 - Benign neoplasm of colon, unspecified Category: Medical Plan: Patient did meet with a leaflet or newspaper deliverer already and will be scheduled for col on test (3) Hepatic steatosis: Code(s): K76.0 - Fatty (change of) liver, not elsewhere classified Category: Medical Plan: Low-fat diet and exercise (4) Obesity: Code(s): E66.9 - Obesity, unspecified Category: Medical Qualifiers: Body mass index: BMI 50.0-59.9 Obesity classification: adult class 3 (BMI >= 40) Obesity type: due to excess calories Serious obesity comorbidity presence: with serious comorbidity Qualified Code(s): E66.01 - Morbid (severe) obesity due to excess calories; Z68.43 - Body mass index [BMI] 50.0-59.9, adult Plan: Patient has lost more than 30 lb patient has been taking wegovy. (5) Impaired fasting glucose: Code(s): R73.01 - Impaired fasting glucose Category: Medical Plan: Decrease the amount of carbohydrate intake, pasta, bread, rice and potatoes are all sugar and that is aside from all the sweet stuff, remember that fruits are good but they are Sweet also. (6) Hypercholesterolemia: Code(s): E78.00 - Pure hypercholesterolemia, unspecified Category: Medical Plan: Avoid fried foods, chicken skin, eggs, butter margarine, pastries and meat. Be it pork or beef they have a lot of cholesterol patient on simvastatin April 2025 last blood work (7) Hypertension: Comment: Catheterization done July 2013[place] [facility] Code(s): I10 - Essential (primary) hypertension Category: Medical Qualifiers: Hypertension type: essential hypertension Qualified Code(s): I10 - Essential (primary) hypertension Plan: Continue with blood pressure medication. Decrease salt intake and exercise on metoprolol 100 mg twice a day amlodipine 5 mg once a day (8) Peripheral vascular disease: Code(s): I73.9 - Peripheral vascular disease, unspecified Category: Medical Plan: When sitting down elevate the legs, exercise, and support stockings Plan History of Present Illness The patient is a 69-year-old male presenting for a follow-up visit. The patient has a history of obesity and has experienced significant weight loss of 45 pounds over the past four months, attributed to lifestyle changes and the use of Wegovy. He follows a low-fat diet and engages in regular exercise, which has contributed to his weight management. The patient has a history of systemic lupus erythematosus, hypertension, peripheral vascular disease, hypercholesterolemia, and hypogonadism. He is currently on simvastatin for hypercholesterolemia and metoprolol and amlodipine for hypertension management. The patient has obstructive sleep apnea and uses a CPAP machine regularly, which he finds beneficial. He also has impaired glucose tolerance and a history of right foot drop. The patient has hepatic cirrhosis and cholelithiasis, with elevated liver function tests noted in recent blood work. His last blood work in April 2025 showed normal blood count, electrolytes, renal function, and blood sugar, but high uric acid levels. The patient has a history of PSA elevation and is scheduled for an MRI of the prostate on July 28. He follows up with urology for this condition. The patient is also under the care of gastroenterology for colon tests due to a history of tubular adenoma. His last colonoscopy was in 2019. Health Maintenance - Vaccinations: COVID-19, influenza, shingles, tetanus, and pneumonia vaccines are up to date. - Colonoscopy: Scheduled due to history of tubular adenoma. - Weight management: Engages in low-fat diet and regular exercise, resulting in significant weight loss. Social History - Exercise: Engages in regular physical activity as part of weight management. - Diet: Follows a low-fat diet contributing to weight loss. Review of Systems - Respiratory: Denies dyspnea, cough, or wheezing. - Cardiovascular: Denies chest pain or palpitations. - Gastrointestinal: Denies nausea or heartburn. Physical Exam - Respiratory: Lungs clear to auscultation bilaterally. Results - Labs: Normal blood count, electrolytes, renal function, and blood sugar; high uric acid; elevated liver function tests. - Imaging: MRI of the prostate scheduled for July 28 due to PSA elevation. - Screening: Last colonoscopy in 2018, follow-up scheduled due to tubular adenoma. Plan Patient was informed and verbally consented to the use of an ambient scribe for clinic note documentation during this visit. 1. Obesity The patient has been managing obesity through lifestyle modifications, including a low-fat diet and regular exercise, resulting in a weight loss of 45 pounds over four months. He is also using Wegovy to aid in weight management. 2. Systemic Lupus Erythematosus The patient has a history of systemic lupus erythematosus, which is being monitored as part of his overall health management. 3. Hypertension Hypertension is managed with metoprolol and amlodipine, with adjustments made based on blood pressure readings. 4. Peripheral Vascular Disease Peripheral vascular disease is part of the patient's chronic conditions being monitored during follow-ups. 5. Hypercholesterolemia Hypercholesterolemia is managed with simvastatin, and recent lab results show an LDL of 82 mg/dL and triglycerides of 103 mg/dL. 6. Hypogonadism The patient has hypogonadism and is advised to have an MRI of the prostate due to PSA elevation. 7. Obstructive Sleep Apnea Obstructive sleep apnea is managed with CPAP therapy, which the patient uses regularly and finds beneficial. 8. Impaired Glucose Tolerance The patient has impaired glucose tolerance, which is being monitored as part of his chronic condition management. 9. Right Foot Drop The patient has a history of right foot drop, which is part of his chronic conditions being monitored. 10. Hepatic Cirrhosis Hepatic cirrhosis is monitored with regular liver function tests, which have shown elevated levels. 11. Cholelithiasis The patient has a history of cholelithiasis, which is part of his chronic condi tions being monitored. 12. Psa Elevation The patient has PSA elevation and is scheduled for an MRI of the prostate on July 28, with follow-up care through urology. 13. Tubular Adenoma The patient is scheduled for a colonoscopy due to a history of tubular adenoma, with follow-up care through gastroenterology. Discussion Notes During the visit, we discussed the patient's ongoing management of obesity through lifestyle changes and the use of Wegovy, which has resulted in significant weight loss. We reviewed his hypertension management with metoprolol and amlodipine, and the importance of maintaining blood pressure within target ranges. The patient is scheduled for an MRI of the prostate due to PSA elevation, and we discussed the potential use of contrast during the procedure. We also reviewed his upcoming colonoscopy due to a history of tubular adenoma and the importance of regular screenings. Patient Instructions - Continue low-fat diet and regular exercise to manage weight. - Use CPAP machine regularly for obstructive sleep apnea. - Follow up with urology for MRI of the prostate on July 28. - Schedule and attend colonoscopy as advised by gastroenterology. - Monitor blood pressure regularly and adjust medication as needed. Medications: Refilled semaglutide (weight loss) (Wegovy) administer weeks 13 through 16 of therapy 1.7 mg (0.75 mL) subcut QWEEK 3 mL 3RF amlodipine 5 mg PO DAILY 90 tabs 3RF
[2025-07-27 11:19] VITALS: BP 130/64; PULSE 75; RESP 18; TEMP 36.1; O2SAT 98; BMI 45.2
--- OUTSIDE RECORDS SUMMARY | 2025-07-27 13:29 | XMS_ITS | Patient Health Record ---
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 Name Role Phone Yuri Rowe Primary Care Provider Unavailserjio e Stephy Mix Unavailable [phone] Allergies Allergen (clinical drug ingredient) Drug/Non Drug Allergy documented on EMR Reaction Allergy Type Onset Date Status Penicillin Unknown Drug Allergy Active Reason For Referral No Information Medications Medication SIG (Take, Route, Frequency, Duration) Notes Start Date End Date Status Wegovy 0.25 MG/0.5ML 0.5 mL Subcutaneous Active Amlodipine & Diet Manage Prod Active Ammonium Lactate 12 % 1 application Exte rnally to affected areas of dry skin to feet except for between the toes Twice a day; Duration: 90 days Active Vitamin D 50 MCG (1999) 1 tablet Orally Once a day Active Aspirin Adult Low Dose Active Ibuprofen 600 MG 1 tablet with food o r milk as needed Orally Three times a day Active Voltaren 1 % as directed Externally Active Olmesartan Medoxomil 20 MG 1 tablet Orally Once a day Active Metoprolol Succinate 100 MG 1 capsule Orally Once a day Active Fexofenadine HCl 180 MG 1 tablet Swallow whole with water; do not take with fruit juices. Orally Once a day Active Immunizations Vaccine Route Administration Date Status [...] Problem Acquired hammer toe of right foot (4594498642378238) Other hammer toe(s) (acquired), right foot (M20.41) Active confirmed Problem Bilateral atherosclerosis of arteries of lower limbs (disorder) (84152383463385898 ) Atherosclerosis of [place] artery of both lower extremities, with unspecified presence of clinical manifestation (I70.203) Active confirmed Q7(A), Q8(2B), Q9(1B,2 C) Problem Localized, primary osteoarthritis of the ankle and/or foot (442375965) Arthritis of joint of lesser toe, right (M19.071) Active confirmed Problem Inflammatory and toxic neuropathy (248441645) Peripheral polyneuropathy (G62.9) Active confirmed Vital Signs Heart Rate 78 /min 01/09/2025 Blood pressure diastolic 77 mm Hg 07/17/2025 Height 5ft 11in in 07/17/2025 Blood pressure systolic 132 mm Hg 07/17/2025 Weight 360 lbs 07/17/2025 BMI 50.2 kg/m2 07/17/2025 Procedures Procedure Date Ordered Date Performed Result Body Sit e 30872-CGMHQEW NAIL, 6 OR MORE 01/09/2025 N/A 82508-DVNW SKIN LESIONS, 2 TO 4 01/09/2025 N/A 43054-GESTNGA NAIL, 6 OR MORE 04/14/2025 N/A 95481-GWBG SKIN LESIONS, 2 TO 4 04/14/2025 N/A 25361-JCAZKPQ NAIL, 6 OR MORE 07/17/2025 N/A 64216-UDIA SKIN LESIONS, 2 TO 4 07/17/2025 N/A Encounters Encounter Location Date Provider Diagnosis [facility] [address] [place] [address] 01/09/2025 Stephy Black Atherosclerosis of n ative [...] foot drop M21.371 and Blood blister T14.8XXA [address] [address] 04/14/2025 Stephy Black Atherosclerosis of n ative artery of both lower extremities, with unspecified presence of clinical manifestation I70.203 ; Other hammer toe(s) (acquired), right foot M20.41 ; Tinea unguium B35.1 ; Pain in right toe(s) M79.674 ; Pain in left toe(s) M79.675 ; Xerosis of skin L85.3 and Peripheral polyneuropathy G62.[address] [address] 07/17/2025 Stephy Black Atherosclerosis of n ative artery of both lower extremities, with unspecified presence of clinical manifestation I70.203 ; Tinea unguium B35.1 ; Pain in right toe(s) M79.674 ; Pain in left toe(s) M79.675 and Peripheral polyneuropathy G62.9 Assessments Encounter Date Diagnosis (ICD Code) Assessment Notes Treatment Notes Treatment Clinical Notes Section Notes 01/09/2025 Other hammer toe(s) (acquired), right foot (ICD-10 - M20.41) o 01/09/2025 Atherosclerosis of [place] artery of both lower extremities, with unspecified presence of clinical manifestation (ICD-10 - I70.203) Q7(A), Q8(2B), Q9(1B,2C) o 04/14/2025 Other hammer toe(s) (acquired), right foot (ICD-10 - M20.41) 04/14/2025 Atherosclerosis of [place] artery of both lower extremities, with unspecified presence of clinical manifestation (ICD-10 - I70.203) Q7(A), Q8(2B), Q9(1B,2C) 07/17/2025 Tinea unguium (ICD-1 0 - B35.1) 07/17/2025 Atherosclerosis of [place] artery of both lower extremities, with unspecified presence of clinical manifestation (ICD-10 - I70.203) Q7(A), Q8(2B), Q9(1B,2C) 07/17/2025 Pain in right toe(s) (ICD-10 - M79.674) 04/14/2025 Tinea unguium (ICD-1 0 - B35.1) 01/09/2025 Tinea unguium (ICD-1 0 - B35.1) o 01/09/2025 Pain in right toe(s) (ICD-10 - M79.674) o 04/14/2025 Pain in right toe(s) (ICD-10 - M79.674) 07/17/2025 Pain in left toe(s) (ICD-10 - M79.675) 07/17/2025 Peripheral polyneuropathy (ICD-10 - G62.9) 01/09/2025 Pain in left toe(s) (ICD-10 - [...] Treatment Pending Test Test Name Order Date 48251-LVFIQQK NAIL, 6 OR MORE 01/09/2025 64329-ASLNKAD NAIL, 6 OR MORE 04/14/2025 39450-ODRPLJA NAIL, 6 OR MORE 07/17/2025 93298-JXOG SKIN LESIONS, 2 TO 4 01/10/20 92368-EMOO SKIN LESIONS, 2 TO 4 07/17/20 07167-GAQQ SKIN LESIONS, 2 TO 4 04/14/20 Next Appt Details Provider Name:Stephy Mix , 10/23/2025 12:30:00 PM, [address] [facility], [place], [address], Insurance Providers Payer Name Payer Address Payer Phone Subscriber Number Group Number Insured Name Patient Relationship to Insured Coverage Start Date Coverage End Date [facility] [employer] Claims [address] [place] [phone] [id number] Carroll Swain Self - patient is the insured Medical (General) History Medical History History ICD Code CAD (Cholesterol) Cataracts Gall bladder problems High Blood Pressure Numbness Poor circulation Joint implants/screws Gallstones Surgical History Surgery Date(Month/Year) hip replacement catarcts
== END 2025-07-27 11:57 | disposition home or self-care (01) ==
LOC: HO.HMCH 10:53
PROVIDERS: PCP Internal Medicine; Visit Provider Internal Medicine
DX: G47.33 Obstructive sleep apnea (adult) (pediatric) (principal); E66.01 Morbid (severe) obesity due to excess calories; Z68.43 Body mass index [BMI] 50.0-59.9, adult; D12.6 Benign neoplasm of colon, unspecified; K76.0 Fatty (change of) liver, not elsewhere classified; R73.01 Impaired fasting glucose; E78.00 Pure hypercholesterolemia, unspecified; I10 Essential (primary) hypertension; I73.9 Peripheral vascular disease, unspecified

== ENCOUNTER → 2025-07-27 10:53 | Outpatient (BNVA) | payer OTHER, SELFPAY | PROVIDERS: PCP Internal Medicine; Visit Provider Internal Medicine | DX: G47.33 Obstructive sleep apnea (adult) (pediatric) (principal); D12.6 Benign neoplasm of colon, unspecified; K76.0 Fatty (change of) liver, not elsewhere classified; E66.01 Morbid (severe) obesity due to excess calories; R73.01 Impaired fasting glucose; E78.00 Pure hypercholesterolemia, unspecified; I10 Essential (primary) hypertension; I73.9 Peripheral vascular disease, unspecified; M32.9 Systemic lupus erythematosus, unspecified; E29.1 Testicular hypofunction; K74.60 Unspecified cirrhosis of liver; M21.371 Foot drop, right foot; R97.20 Elevated prostate specific antigen [PSA]; Z68.43 Body mass index [BMI] 50.0-59.9, adult; Z99.89 Dependence on other enabling machines and devices | CPT/HCPCS: 99212 ==

== ENCOUNTER → 2025-07-28 09:02 | Outpatient (BNV) | payer OTHER, SELFPAY | PROVIDERS: PCP Internal Medicine; Visit Provider Radiology Diagnostic Radiology | DX: R97.20 Elevated prostate specific antigen [PSA] (principal) | CPT/HCPCS: 72197; 76377 ==

== ENCOUNTER 2025-07-28 09:15 | Outpatient (REF) | payer OTHER, SELFPAY ==
--- NOTE | ~2025-07-28 | MR_ITS ---
EXAMINATION: MR PROSTATE WITHOUT THEN WITH IV CONTRAST, MR EXAM UNLISTED HISTORY: R97.20 - Elevated prostate specific antigen [PSA] TECHNIQUE: 1.5T body coil survey of the pelvis was performed. Phase array coil imaging of the prostate was performed in multiplanar high resolution axial, coronal, sagittal fast spin echo T2 and axial T1 weighted imaging sequences. Axial diffusion imaging at intermediate and high field performed with ADC mapping. Next, 10 mL Gadavist was given by intravenous infusion, and dynamic axial imaging performed. 3-D reconstructions and post-processing were performed on an independent workstation by the radiologist for biopsy planning using image fusion. COMPARISON: There are no prior studies available for comparison. CLINICAL DATA: Most recent PSA: 6.14 ng/mL on 07/22/2025. PSA Density: 0.13 ng/mL squared Prostate Biopsy: None reported FINDINGS: Prostate size: 4.4 x 4.9 x 4.1 cm. Calculated prostate volume is 46.0 mL. Hemorrhage: None. Transitional Zone: There is moderate heterogeneous nodular hypertrophy of the transitional zone. Peripheral Zone: There is heterogeneously decreased T2 signal intensity throughout the peripheral zone which can be seen in the setting of prostatitis of scarring. In addition, there is an area of interest in the peripheral zone as described below: Area of interest #1: Location: Left posterolateral peripheral zone in the mid gland/apex measuring 9 mm in size (series 7, images 25-26). DWI PI-RADS v2.1 score: 4 T2 PI-RADS v2.1 score: 4 DCE PI-RADS v2.1 score: + Overall PI-RADS v2.1 score: 4 Capsular contact: yes Extracapsular extension: None Seminal vesicle invasion: None Neurovascular bundle involvement: None Seminal Vesicles/Ejaculatory Ducts: Symmetric and normal in signal and caliber. Pelvic Lymph Nodes: No obturator or internal iliac lymph nodes meeting size criteria for adenopathy. Marrow Signal: There is magnetic susceptibility artifact from a left total hip arthroplasty. Otherwise normal marrow signal and enhancement without focal lesion identified. MR/MR Prostate wo/w con IMPRESSION: Area of interest in the left posterolateral peripheral zone in the mid gland/apex, suspicious for clinically significant prostate carcinoma. PI-RADS 4: High (clinically significant cancer is likely to be present) PI-RADS Assessment Categories PI-RADS 1: Very low (clinically significant cancer is highly unlikely to be present) PI-RADS 2: Low (clinically significant cancer is unlikely to be present) PI-RADS 3: Intermediate (the presence of clinically significant cancer is equivocal) PI-RADS 4: High (clinically significant cancer is likely to be present) PI-RADS 5: Very high (clinically significant cancer is highly likely to be present) [employer]. MR Prostate Imaging Reporting and Data System version 2.1. [email or web address] Electronically signed by: Lei Jorge MD 07/30/2025 07:53 AM EDT
== END 2025-07-28 09:16 | disposition home or self-care (01) ==
LOC: HO.MRI 09:15
PROVIDERS: PCP Internal Medicine; Visit Provider Urology
DX: R97.20 Elevated prostate specific antigen [PSA] (principal)
CPT/HCPCS: 72197; 76377; A9585